=== PATIENT | male | born 1935 | race Caucasian/White ===

== ENCOUNTER 2018-05-21 16:20 | Inpatient (IN) | payer OTHER ==
[2018-05-21 17:54] LABS: Absolute Lymphocytes (CBC) 1.7 K/uL (0.7-4.9); Absolute Monocytes 0.7 K/uL (0.1-1.3); Absolute Neutrophil 4.2 K/uL (1.8-8.0); Basophils % 0.5 % (0-1.3); Eosinophils % 1.7 % (0-4.4); Hematocrit 30.2 % (39.6-49.0); Lymphocytes % 24.9 % (15.3-44.8); Monocytes % 10.8 % (3.3-12.3); RBC Red Blood Cell Count 3.31 M/uL (4.33-5.43)
[2018-05-21] MEDS ORDERED: BUMETANIDE 2.5 MG/10 ML VIAL IV ONE (18:00)
[2018-05-21 18:13] LABS: Albumin 2.8 g/dL (3.4-5.0); Bilirubin Direct 0.1 mg/dL (0-0.2); Bilirubin Total 0.2 mg/dL (0.2-1.0); Magnesium 1.9 mg/dL (1.8-2.4); Potassium 3.6 mmol/L (3.5-5.1); Troponin (Emerg Dept Use Only) 0.02 ng/mL (0.0-0.045)
--- NOTE | 2018-05-21 18:51 | RAD REPORT ---
EXAM DESCRIPTION: RAD - Chest Single View - 05/21/2018 6:34 pm CLINICAL HISTORY: DYSPNEA Chest pain. COMPARISON: No comparisons FINDINGS: Portable technique limits examination quality. Moderate bilateral pulmonary opacities are noted likely representing pulmonary edema. The heart is mi ldly enlarged in size. No displaced fractures. IMPRESSION: Moderate CHF versus volume overload pattern.
[2018-05-21 19:00] LABS: Anisocytosis 2+; Blood Morphology Comment NOTED (NOT SEEN); Platelet Estimate ADEQ; Urine White Blood Cell Casts OK
[2018-05-21 19:01] LABS: Hypochromasia 1+; Ovalocytes 1+; Polychromasia 1+
--- NOTE | 2018-05-21 19:55 | ER ---
Nurse's Notes [facility] Name: Jorge Crespo Age: 83 yrs Sex: Male : 1935 Arrival Date: 05/21/2018 Time: 16:24 Bed 19 Private MD: Diagnosis: acute chf exacerbation;CKD;pedal edema Presentation: 05/21 16:35 Presenting complaint: Patient states: c/o shortness of breath. Transition of care: rb1 patient was not received from another setting of care. 16:35 Method Of Arrival: Wheelchair rb1 16:35 Acuity: MELISSA 3 rb1 16:35 Onset of symptoms was May 20, 2018. Risk Assessment: Do you want to hurt yourself sv or someone else? Patient reports no desire to harm self or others. Initial Sepsis Screen: Does the patient meet any 2 criteria? No. Patient's initial sepsis screen is negative. Does the patient have a suspected source of infection? No. Patient's initial sepsis screen is negative. Note Pt has gained 4 lbs overnight, reported by spouse. Care prior to arrival: None. Triage Assessment: 16:35 General: Appears in no apparent distress. uncomfortable, obese, well developed, sv Behavior is calm, cooperative, appropriate for age. Pain: Denies pain. Neuro: Level of Consciousness is awake, alert, obeys commands, Oriented to person, place, time, situation, Gait is steady, Speech is normal. Cardiovascular: Patient's skin is warm and dry. Edema is 3+ to left midcalf, left ankle, left foot, right midcalf, right ankle and right foot pitting to left midcalf, left ankle, left foot, right midcalf, right ankle and right foot. Respiratory: Reports shortness of breath on exertion Airway is patent Respiratory effort is even, unlabored, Respiratory pattern is regular, tachypnea Onset: The symptoms/episode began/occurred yesterday, the patient has mild shortness of breath. Derm: Skin is normal. Historical: - Allergies: 16:35 No Known Allergies; rb1 - PMHx: 16:35 Diabetes - IDDM; CHF; A-fib; Myocardial infarction; Rheumatoid Arthritis; rb1 - PSHx: 16:35 bilateral knees; kidney; rb1 - Immunization history:: Adult Immunizations up to date. - Social history:: Smoking status: Patient/guardian denies using tobacco. - Ebola Screening: : Patient negative for fever greater than or equal to 101.5 degrees Fahrenheit, and additional compatible Ebola Virus Disease symptoms. Screenin:35 Abuse screen: Denies threats or abuse. Nutritional screening: No deficits noted. rb1 Tuberculosis screening: No symptoms or risk factors identified. 17:55 Fall Risk None identified. sv Assessment: 17:30 Cardiovascular: Rhythm is atrial fibrillation With PVC's. sv 17:55 Reassessment: Patient appears in no apparent distress at this time. Patient and/or sv family updated on plan of care and expected duration. Pain level reassessed. Patient is alert, oriented x 3, equal unlabored respirations, skin warm/dry/pink. 18:15 Reassessment: Patient appears in no apparent distress at this time. Patient and/or sv family updated on plan of care and expected duration. Pain level reassessed. Patient is alert, oriented x 3, equal unlabored respirations, skin warm/dry/pink. Patient states feeling better. Patient states symptoms have improved. 19:00 Reassessment: Patient appears in no apparent distress at this time. Patient and/or jb4 family updated on plan of care and expected duration. Pain level reassessed. A\T\O4. 19:00 Respiratory: Airway is patent Respiratory effort is even, labored, Respiratory pattern jb4 is regular, symmetrical, Breath sounds are clear. 20:00 Reassessment: Patient appears in no apparent distress at this time. Patient and/or jb4 family updated on plan of care and expected duration. Pain level reassessed. General:. Neuro: Oriented to person, place, time, situation. Respiratory: Airway is patent Respiratory effort is even, labored, Respiratory pattern is regular, symmetrical. 21:00 Reassessment: Patient appears in no apparent distress at this time. No changes from jb4 previously documented assessment. Patient and/or family updated on plan of care and expected duration. Pain level reassessed. attempted to call report, instructed to wait for call back. 21:33 Reassessment: Patient appears in no apparent distress at this time. No changes from jb4 previously documented assessment. Patient and/or family updated on plan of care and expected duration. Pain level reassessed. Report called to XIN Carmona. Vital Signs: 16:35 BP 139 / 79; Pulse 71; Resp 22; Temp 97.4(TE); Pulse Ox 99% on 3 lpm NC; Weight 116.12 rb1 kg (R); Height 5 ft. 7 in. (170.18 cm) (R); Pain 0/10; 17:29 BP 121 / 78; Pulse 96 MON; Resp 21; Pulse Ox 100% on 3.5 lpm NC; sv 19:05 BP 117 / 71; Pulse 96; Resp 18 S; Pulse Ox 100% on R/A; jd3 20:15 BP 117 / 56; Pulse 92; Resp 15; Pulse Ox 97% on 2 lpm NC; jb4 16:35 Body Mass Index 40.09 (116.12 kg, 170.18 cm) rb1 17:29 A fib with Occasional PVCs sv ED Course: 16:24 Patient arrived in ED. rg4 16:35 Patient has correct armband on for positive identification. Bed in low position. Call rb1 light in reach. Side rails up X 1. personal loan specialist on. Pulse ox on. NIBP on. 16:40 Sophie Mosher RN is Primary Nurse. sv 16:40 Arm band placed on Patient placed in an exam room, on a stretcher, on metalizing machine operator automatic, sv on pulse oximetry. 16:43 Lawson Alicia MD is Attending Physician. ps1 16:53 Triage completed. rb1 17:16 ED physician to see patient. sv 17:35 Door closed. Warm blanket given. Head of bed elevated. sv 17:35 Initial lab(s) drawn, by me, sent to lab. Inserted saline lock: 20 gauge in right sv antecubital area, using aseptic technique. Blood collected. Flushed right antecubital with 5 ml normal saline. 17:49 EKG done, by lens coating technician. reviewed by Lawson Alicia MD. sm3 18:34 XRAY CXR (1 view) In Process Unspecified. EDMS 19:10 Report given to David LAUREN. sv 19:24 Primary Nurse role handed off by Sophie Mosher RN sv 19:53 Jill Ngo MD is Hospitalizing Provider. ps1 21:26 Daren Scruggs RN is Primary Nurse. jb4 Administered Medications: 17:55 Drug: Bumex 1.25 mg Route: IVP; Site: right antecubital; sv 18:15 Follow up: Response: No adverse reaction sv Output: 17:40 Urine: 280ml (Voided); Total: 280ml. sv Outcome: 19:54 Decision to Hospitalize by Provider. ps1 22:14 Patient left the ED. fc Signatures: Dispatcher [employer] EDSophie Barrett RN RN sv Chretien, Felicia, RN RN Alanis Riley RN RN rb1 Ariella Kyle rg4 Daren Scruggs RN RN jb4 David Wallace RN RN jd3 Lawson Alicia MD MD ps1 Blanca Soria sm3 Corrections: (The following items were deleted from the chart) 19:19 17:29 BP 121 / 78; Pulse 96bpm; Monitor: A fib with Occasional PVCsResp 21bpm; Pulse Ox sv 100%; sv 20:59 19:00 Reassessment: Patient appears in no apparent distress at this time. Patient jb4 and/or family updated on plan of care and expected duration. Pain level reassessed. Patient is alert, oriented x 3, equal unlabored respirations, skin warm/dry/pink. jb4 20:59 20:00 Reassessment: Patient appears in no apparent distress at this time. Patient jb4 and/or family updated on plan of care and expected duration. Pain level reassessed. Patient is alert, oriented x 3, equal unlabored respirations, skin warm/dry/pink. jb4 21:43 21:00 Reassessment: Patient appears in no apparent distress at this time. No changes jb4 from previously documented assessment. Patient and/or family updated on plan of care and expected duration. Pain level reassessed. jb4
--- NOTE | 2018-05-21 19:56 | EDPHYS ---
Physician Documentation [facility] Name: Jorge Crespo Age: 83 yrs Sex: Male : 1935 Arrival Date: 05/21/2018 Time: 16:24 Bed 19 Private MD: ED Physician Lawson Alicia HPI: 05/21 19:37 This 83 yrs old Male presents to ER via Wheelchair with complaints of ps1 Breathing Difficulty. 19:37 Patient has an extensive medical history with prolonged admission at [facility] IDDM, PEA ps1 arrest in Mar, CKD, LVEF35% on bumex and now is fluid overloaded. Short of breath and increased weight gain over last week. Leg and abdomen swelling. Can speak in full sentences but labored. No fever. . Historical: - Allergies: 16:35 No Known Allergies; rb1 - PMHx: 16:35 Diabetes - IDDM; CHF; A-fib; Myocardial infarction; Rheumatoid Arthritis; rb1 - PSHx: 16:35 bilateral knees; kidney; rb1 - Immunization history:: Adult Immunizations up to date. - Social history:: Smoking status: Patient/guardian denies using tobacco. - Ebola Screening: : Patient negative for fever greater than or equal to 101.5 degrees Fahrenheit, and additional compatible Ebola Virus Disease symptoms. ROS: 19:37 Constitutional: Negative for fever, chills, and weight loss, Eyes: Negative for injury, ps1 pain, redness, and discharge, Cardiovascular: Negative for chest pain, palpitations, and edema, Abdomen/GI: Negative for abdominal pain, nausea, vomiting, diarrhea, and constipation, Back: Negative for injury and pain, Skin: Negative for injury, rash, and discoloration, Neuro: Negative for headache, weakness, numbness, tingling, and seizure. 19:37 Respiratory: Positive for dyspnea on exertion, shortness of breath, on exertion. 19:37 MS/extremity: Positive for swelling, of the right leg and left leg. Exam: 19:37 Constitutional: This is a well developed, well nourished patient who is awake, alert, ps1 and in no acute distress. Head/Face: Normocephalic, atraumatic. Eyes: Pupils equal round and reactive to light, extra-ocular motions intact. Lids and lashes normal. Conjunctiva and sclera are non-icteric and not injected. Chest/axilla: Normal chest wall appearance and motion. Nontender with no deformity. No lesions are appreciated. Cardiovascular: Regular rate and rhythm. No gallops, murmurs, or rubs. Normal PMI, no JVD. No pulse deficits. Abdomen/GI: Soft, non-tender, with normal bowel sounds. No distension or tympany. No guarding or rebound. No evidence of tenderness throughout. Back: No spinal tenderness. No costovertebral tenderness. Full range of motion. Skin: Warm, dry with normal turgor. Normal color with no rashes, no lesions, and no evidence of cellulitis. Neuro: Awake and alert, GCS 15, oriented to person, place, time, and situation. Cranial nerves II-XII grossly intact. Sensory grossly intact. 19:37 Respiratory: the patient does not display signs of respiratory distress, Respirations: labored breathing, that is mild, Breath sounds: rhonchi. 19:37 Musculoskeletal/extremity: Extremities: bilateral lower extremity edema extending proximally towards the abdomen. Vital Signs: 16:35 BP 139 / 79; Pulse 71; Resp 22; Temp 97.4(TE); Pulse Ox 99% on 3 lpm NC; Weight 116.12 rb1 kg (R); Height 5 ft. 7 in. (170.18 cm) (R); Pain 0/10; 17:29 BP 121 / 78; Pulse 96 MON; Resp 21; Pulse Ox 100% on 3.5 lpm NC; sv 19:05 BP 117 / 71; Pulse 96; Resp 18 S; Pulse Ox 100% on R/A; jd3 20:15 BP 117 / 56; Pulse 92; Resp 15; Pulse Ox 97% on 2 lpm NC; jb4 16:35 Body Mass Index 40.09 (116.12 kg, 170.18 cm) rb1 17:29 A fib with Occasional PVCs sv MDM: 17:12 Patient medically screened. ps1 19:37 Data reviewed: vital signs, nurses notes, lab test result(s), EKG, radiologic studies, ps1 and as a result, I will admit patient. Counseling: I had a detailed discussion with the patient and/or guardian regarding: the historical points, exam findings, and any diagnostic results supporting the discharge/admit diagnosis, lab results, radiology results, the need for further work-up and treatment in the hospital. 02/05 17:35 Order name: BMP; Complete Time: 19:13 ps1 05/21 17:35 Order name: CBC with Diff; Complete Time: 19:13 ps1 05/21 17:35 Order name: Hepatic Function; Complete Time: 19:13 ps1 05/21 17:35 Order name: Lipase; Complete Time: 19:13 ps1 05/21 17:35 Order name: Magnesium; Complete Time: 19:13 ps1 05/21 17:35 Order name: NT PRO-BNP; Complete Time: 19:13 ps1 05/21 17:26 Order name: EKG; Complete Time: 17:26 sv 05/21 17:26 Order name: EKG - Nurse/Tech; Complete Time: 17:28 sv 05/21 17:35 Order name: XRAY CXR (1 view); Complete Time: 19:13 ps1 05/21 17:35 Order name: Troponin (emerg Dept Use Only); Complete Time: 19:13 ps1 05/21 17:35 Order name: Cardiac monitoring; Complete Time: 17:42 ps1 05/21 17:35 Order name: IV Saline Lock; Complete Time: 17:42 ps1 05/21 19:01 Order name: CBC Smear Scan; Complete Time: 19:13 EDMS 05/21 17:35 Order name: Labs collected and sent; Complete Time: 17:42 ps1 05/21 17:35 Order name: O2 Per Protocol; Complete Time: 17:42 ps1 05/21 17:35 Order name: O2 Sat Monitoring; Complete Time: 17:42 ps1 Administered Medications: 17:55 Drug: Bumex 1.25 mg Route: IVP; Site: right antecubital; sv 18:15 Follow up: Response: No adverse reaction sv Disposition: 05/21/18 19:54 Hospitalization ordered by Jill Ngo for Inpatient Admission. Preliminary diagnosis are acute chf exacerbation, CKD, pedal edema. - Bed requested for Telemetry/MedSurg (Inpatient). - Status is Inpatient Admission. fc - Condition is Fair. - Problem is an acute exacerbation. - Symptoms are unchanged. UTI on Admission? No Signatures: Dispatcher [employer] Sophie Grijalva RN RN sv Webb, Martha, RN RN Lulú Zhao RN RN Alanis Riley RN RN rb1 Lawson Alicia MD MD ps1 Corrections: (The following items were deleted from the chart) 20:25 19:54 Hospitalization Ordered by Jill Ngo MD for Inpatient Admission. Preliminary mw diagnosis is acute chf exacerbation; CKD; pedal edema. Bed requested for Telemetry/MedSurg (Inpatient). Status is Inpatient Admission. Condition is Fair. Problem is an acute exacerbation. Symptoms are unchanged. UTI on Admission? No. ps1 22:14 20:25 05/21/2018 19:54 Hospitalization Ordered by Jill Ngo MD for Inpatient fc Admission. Preliminary diagnosis is acute chf exacerbation; CKD; pedal edema. Bed requested for Telemetry/MedSurg (Inpatient). Status is Inpatient Admission. Condition is Fair. Problem is an acute exacerbation. Symptoms are unchanged. UTI on Admission? No. mw
[2018-05-21] MEDS ORDERED: ONDANSETRON 4 MG/2 ML VIAL IV PRN (22:50)
[2018-05-21] MEDS ORDERED: ACETAMINOPHEN 500 MG TAB PO PRN (22:50)
--- NOTE | 2018-05-21 23:48 | P.HP ---
Certification for Inpatient Patient admitted to: Inpatient With expected LOS: >2 Midnights Practitioner: I am a practitioner with admitting privileges, knowledge of patient current condition, hospital course, and medical plan of care. Services: Services provided to patient in accordance with Admission requirements found in Title 42 Section 412.3 of the Code of Federal Regulations Patient History Date of Service: 05/21/18 Reason for admission: acute on chronic systolic CHF History of Present Illness: Mr Crespo is an 83 years old male with history of DM II, COPD with home oxygen at 3.5L by [place], HTN, Chronic A.Fib anticoagulated with apixiban, chronic systolic CHF, last ECHO shows EF 35%, admitted to [facility] about 1 month ago due to pulmonary edema, complicated with respiratory failure, requiring mechanical ventilation. The patient came to ED at this time complaining of progressive increasing in LE edema, also abdominal girth increased. He complain of SOB with minimal activity, improving with rest. His cloth tester has increased Bumex dose recently due to his symptoms, but did not work. No fever or chills reported. Lab work remarkable for abnormal renal function, elevated proBNP. CXR consistent with pulmonary edema. Allergies No Known Allergies Allergy (Unverified 05/21/18 20:33) Home medications list reviewed: Yes Home Medications: Allopurinol 300 mg PO DAILY 05/21/18 Apixaban [Eliquis *] 2.5 mg PO BID 05/21/18 Brimonidine Tartrate [Alphagan P] 1 drop OP BEDTIME 05/21/18 Bumetanide [Bumex] 2 mg PO BID 05/21/18 Dorzolamide HCl/Pf [Dorzolamide 2% Eye Drop] 1 drop OP DAILY 05/21/18 Ferrous Sulfate 325 mg PO TIDWM 05/21/18 Gabapentin 900 mg PO BID 05/21/18 Insulin Detemir [Levemir] 16 unit SQ BID 05/21/18 Metoprolol Tartrate 50 mg PO BID 05/21/18 Simvastatin 20 mg PO DAILY 05/21/18 Tamsulosin HCl 0.4 mg PO DAILY 05/21/18 predniSONE [Prednisone*] 5 mg PO DAILY 05/21/18 traMADol HCL [Ultram*] 50 mg PO BIDP PRN 05/21/18 - Past Medical/Surgical History Has patient received pneumonia vaccine in the past: Yes Diabetic: Yes -: IDDM -: CHF -: Afib -: [place] -: Rheumatoid Arthritis -: Chronic Kidney Disease -: Knees bilaterally -: kidney - Family History Sister -: Hypertension, Diabetes, Cancer - Social History Smoking Status: Never smoker Alcohol use: No CD- Drugs: No Caffeine use: Yes Place of Residence: Home Review of Systems 10-point ROS is otherwise unremarkable Physical Examination - Vital Signs Temperature: 98.2 F Blood Pressure: 130/76 Pulse: 90 Respirations: 16 Pulse Ox (%): 98 - Physical Exam General: Alert, In no apparent distress HEENT: Atraumatic, PERRLA, Mucous membr. moist/pink, EOMI, Sclerae nonicteric Neck: Supple, 2+ carotid pulse no bruit, No LAD, Without JVD or thyroid abnormality Respiratory: Diminished, Crackles/rales (bibasilar rales) Cardiovascular: Normal S1 S2, Irregular heart rate/rhythm Gastrointestinal: Normal bowel sounds, No tenderness Musculoskeletal: No tenderness, Swelling (LE edema 2+) Integumentary: No rashes Neurological: Normal speech, Normal strength at 5/5 x4 extr, Normal tone, Normal affect Lymphatics: No axilla or inguinal lymphadenopathy - Studies Laboratory Data (last 24 hrs) 05/21/18 17:40: WBC 6.7, Hgb 9.2 L, Hct 30.2 L, Plt Count 183 05/21/18 17:40: Sodium 141, Potassium 3.6, BUN 65 H, Creatinine 2.46 H, Glucose 334 H, Magnesium 1.9, Total Bilirubin 0.2, AST 53 H, ALT 103 H, Alkaline Phosphatase 203 H, Lipase 496 H Assessment and Plan - Problems (Diagnosis) (1) Acute on chronic systolic CHF (congestive heart failure) Current Visit: Yes Status: Acute (2) Diabetes mellitus Current Visit: Yes Status: Acute Qualifiers: Diabetes mellitus type: type 2 Diabetes mellitus machine long goods helper insulin use: with machine long goods helper use Diabetes mellitus complication status: with unspecified complications Qualified Code(s): E11.8 - Type 2 diabetes mellitus with unspecified complications; Z79.4 - alf (current) use of insulin (3) COPD (chronic obstructive pulmonary disease) Current Visit: Yes Status: Acute Qualifiers: COPD type: unspecified COPD Qualified Code(s): J44.9 - Chronic obstructive pulmonary disease, unspecified (4) HTN (hypertension) Current Visit: Yes Status: Acute Qualifiers: Hypertension type: essential hypertension Qualified Code(s): I10 - Essential (primary) hypertension (5) CAD (coronary artery disease) Current Visit: Yes Status: Acute Qualifiers: Coronary Disease-Associated Artery/Lesion type: [place] artery [place] vs. transplanted heart: [place] heart Associated angina: without angina Qualified Code(s): I25.10 - Atherosclerotic heart disease of [place] coronary artery without angina pectoris - Plan Will admit the patient due to acute on chronic CHF exacerbation. Will order IV lasix, he has recent cardiac work up done in [facility]. Will order cardiology consult. - Advance Directives Does patient have a Living Will: Yes Does patient have a Durable POA for Healthcare: Yes - Code Status/Comfort Care Code Status Assessed: Yes Code Status: Full Code
[2018-05-22] MEDS: FUROSEMIDE 40 MG/4 ML VIAL IV SCH ×4 (00:13→23:48)
[2018-05-22] MEDS: INSULIN -REGULAR HUMAN 50 UNIT/0.5 ML ML SQ SCH ×5 (00:14→20:42)
[2018-05-22 05:09] LABS: Urine Appearance CLEAR; Urine Bilirubin NEGATIVE (NEG); Urine Blood NEGATIVE (NEG); Urine Color YELLOW; Urine Glucose NEGATIVE (NEG); Urine Protein 1+ (NEG); Urine Urobilinogen 0.2 mg/dL (0.2-1.0)
[2018-05-22 05:30] LABS: Urine Microscopic Reflex ORDER UMIC
[2018-05-22 05:42] LABS: Urine Bacteria <20 /HPF (NONE SEEN); Urine Culture Reflex Order NOT NEEDED; Urine RBC <5 /HPF (NONE SEEN)
[2018-05-22 06:54] LABS: Absolute Lymphocytes (CBC) 1.8 K/uL (0.7-4.9); Absolute Monocytes 0.9 K/uL (0.1-1.3); Absolute Neutrophil 5.6 K/uL (1.8-8.0); Basophils % 0.4 % (0-1.3); Eosinophils % 3.3 % (0-4.4); Hematocrit 30.6 % (39.6-49.0); Lymphocytes % 20.6 % (15.3-44.8); MPV 8.9 fL (7.6-11.3); Monocytes % 10.1 % (3.3-12.3)
--- NOTE | 2018-05-22 06:59 | EKG ---
Test Date: 2018-04-20 Test Time: 17:32:01 Inter Com Servicer: TAMMY MEASUREMENT RESULTS: Intervals: Rate: 105 [place]: QRSD: 88 QT: 360 QTc: 475 [place]: P: [place]: QRS: 47 T: 111 INTERPRETIVE STATEMENTS: Atrial fibrillation with rapid ventricular response Low voltage QRS Nonspecific ST and T wave abnormality, probably digitalis effect Abnormal ECG Compared to ECG 09/25/2005 08:43:27 Low QRS voltage now present ST (T wave) deviation now present Sinus rhythm no longer present Electronically Signed On 05-22-18 06:52:04 CASING BUILDER by Laith Roldan
[2018-05-22 07:14] LABS: Potassium 3.6 mmol/L (3.5-5.1)
[2018-05-22] MEDS ORDERED: POTASSIUM 25 MEQ EFFERV TAB PO ONE (07:20)
[2018-05-22] MEDS: HYDRALAZINE HCL 25 MG TABLET PO SCH ×3 (08:21→20:41)
[2018-05-22] MEDS: APIXABAN 2.5 MG TABLET PO SCH ×2 (08:21→20:41)
[2018-05-22] MEDS ORDERED: ENOXAPARIN 30 MG/0.3 ML SQ SCH (09:00)
--- NOTE | 2018-05-22 10:57 | ECHO ---
HEIGHT: 5 ft 7 in WEIGHT: 256 lb 1.6 oz DATE OF STUDY: 05/22/[address]: Laith Roldan MD 2-DIMENSIONAL: YES M.MODE: YES DOPPLER: YES COLOR FLOW: YES TDS: NO PORTABLE: NO DEFINITY: NO BUBBLE STUDY: NO DIAGNOSIS: CONGESTIVE HEART FAILURE CARDIAC HISTORY: CATHERIZATION: SURGERY: PROSTHETIC VALVE: PACEMAKER: MEASUREMENTS (cm) DIASTOLIC (NORMALS) SYSTOLIC (NORMALS) IVSd 1.4 (0.6-1.2) LA Diam 4.3 (1.9-4.0) LVEF 69% LVIDd 4.3 (3.5-5.7) LVIDs 2.7 (2.0-3.5) %FS 39% LVPWd 1.5 (0.6-1.2) Ao Diam 2.5 (2.0-3.7) 2 DIMENSIONAL ASSESSMENT: RIGHT ATRIUM: DILATED LEFT ATRIUM: DILATED RIGHT VENTRICLE: DILATED LEFT VENTRICLE: NORMAL TRICUSPID VALVE: NORMAL MITRAL VALVE: NORMAL PULMONIC VALVE: NORMAL AORTIC VALVE: SCLEROSIS PERICARDIAL EFFUSION: NONE AORTIC ROOT: NORMAL LEFT VENTRICULAR WALL MOTION: NORMAL. DOPPLER/COLOR FLOW: NO AORTIC STENOSIS OR AORTIC REGURGITATION. MILD MITRAL REGURGITATION. MODERATE TRICUSPID REGURGITATION. SEVERE PULMONARY HYPERTENSION. ESTIMATED RIGHT VENTRICULAR SYSTOLIC PRESSURE 66mmHg. COMMENTS: NORMAL LEFT VENTRICULAR EJECTION FRACTION. AORTIC SCLEROSIS WITH NO AORTIC STENOSIS/ AORTIC REGURGITATION. DILATED LEFT ATRIUM, RIGHT ATRIUM AND RIGHT VENTRICLE. MILD MITRAL REGURGITATION. MODERATE TRICUSPID REGURGITATION. SEVERE PULMONARY HYPERTENSION. TECHNOLOGIST: LEONARDO DACOSTA
--- NOTE | 2018-05-22 12:20 | CON ---
Chief Complaint: Shortness of breath, swelling. Reason For Consult: Atrial fib and congestive heart failure. History Of Present Illness: Mr. Crespo was in [facility]. He gives us a history that he was in the hospit al for many weeks, underwent a cardiac cath, had a balloon pump therapy. No interventions were done after his cardiac cath. He does not have a defibrillator. He was placed on some medications, totall y had congestive heart failure. It sounds like he may have actually left the hospital AMA. Presentl y, he takes prednisone, Flomax, metoprolol, brimonidine, insulin, gabapentin, iron sulfate, dorzolami de, bumetanide, simvastatin, Eliquis 2.5 b.i.d., allopurinol, and tramadol. He has no known allergie s. He did not seem to be familiar with any of the medicines or think that he had been in atrial fibr illation before, but his medication list indicate that probably he has been in atrial fibrillation co nstantly, need to get records from [facility]. The patient is a poor historian. He has a history of diabe johnny, hypertension, prostate disease, COPD, glaucoma, and more recently congestive heart failure and a trial fibrillation. Also a history of gout. Physical Examination: General: He is 5 feet 7 inches, 256 pounds, obese, alert, oriented, pleasant, not in distress. Lungs: No crackles or wheezes. Breath sounds are decreased in both bases. I do not appreciate ____ Heart: Irregularly irregular going about 100 beats per minute. Abdomen: Soft. There is edema of the abdominal wall and thighs, presacral and shins and feet. His electrocardiogram shows atrial fibrillation, heart rate 105, nonspecific ST and T-wave abnormalit y. He was in sinus rhythm in 2005, but we do not know when the atrial fibrillation started following 2005. We suspect it was before February 2018 based on the history he gives us. 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 Thank you very much for the kind referral of Mr. Crespo. I will follow him with you. OSIRIS Voice ID: [id number] Report ID: [id number]
[2018-05-22] MEDS ORDERED: GLUCAGON 1 MG/VIAL IM PRN (14:32)
[2018-05-22] MEDS ORDERED: D50W 25 GM/50 ML SYRINGE IV PRN (14:32)
[2018-05-22] MEDS: FERROUS SULFATE 325 MG TAB PO SCH (16:31)
--- NOTE | 2018-05-22 17:53 | PN ---
Date of Progress Note: 05/22/2018 Subjective: The patient seen and examined. Chart reviewed and case discussed with RN. The patient states that he is still having some difficulty breathing, unable to sleep. He is on oxygen at home a s well. Medications: List reviewed. Code Status: Full code. Physical Examination: Vital Signs: Temperature 97.8, heart rate 97, blood pressure 118/63, respirations 18, O2 96% on 2 L via nasal cannula. General: Awake, alert, oriented x3. Elderly male, ill appearing, morbidly obese. CV: S1, S2. Irregularly irregular. Peripheral pulses are weak bilaterally. Respiratory: Diminished breath sounds. Crackles heard. No wheezing. No use of accessory muscles. Gastrointestinal: Abdomen is soft, distended. No tenderness. Bowel sounds positive. Extremities: No clubbing or cyanosis. The patient has 3+ edema bilateral lower extremities. NEURO: Cranial nerves 2 through 12 intact grossly. No focal neurological deficit. Speech is normal . Skin: No rashes. Normal skin turgor. Laboratory Data: Sodium 143, potassium 3.6, chloride 105, CO2 34, BUN 65, creatinine 2.36, glucose 1 24, calcium 8.2. WBC 8.6, H and H 9.5, 30.6, platelets 230, neutrophils 65%. Echocardiogram pending . Assessment And Plan: An 83-year-old male with: 1.Acute on chronic systolic congestive heart failure. We will continue with congestive heart failur e guidelines. Appreciate Dr. Roldan' input. Recommend starting Entresto. The patient is on beta-bl ocker. We will hold LAURA inhibitor as the patient will need Entresto. We will check echocardiogram. Monitor I's and O's. 1500 mL fluid restriction. Daily weights. 2.Diabetes mellitus type 2 with long-term use of insulin with hyperglycemia. We will resume home do se of long-acting insulin. Continue sliding scale. Continue Accu-Cheks. 3.Chronic obstructive pulmonary disease, chronic bronchitis. Continue albuterol p.r.n. 4.Chronic respiratory failure due to chronic obstructive pulmonary disease and likely congestive hea rt failure. The patient is on 2 L at this time. 5.Morbid obesity. BMI of 40. 6.Essential hypertension, stable. Resume home medications. 7.Gout. We will hold allopurinol due to elevated creatinine. 8.Acute versus acute on chronic kidney injury. Monitor creatinine. Consult Nephrology. 9.Coronary artery disease, caddo artery and caddo heart without angina, stable. 10.Noncompliance. 11.Atrial fibrillation on Eliquis, controlled ventricular rate, chronic. 12.Rheumatoid arthritis. 13.Acute on chronic kidney disease. Unknown baseline. We will need to obtain records. 14.Gastrointestinal and deep venous thrombosis prophylaxis addressed. The patient is already on api xaban renally dosed. Likely discharge in the next 48 to 72 hours pending on clinical response. /MODL Voice ID: [id number] Report ID: [id number]
[2018-05-22] MEDS: METOPROLOL TAR 25 MG TAB PO SCH (17:58)
--- NOTE | 2018-05-22 19:11 | P.CNS ---
Date of Consult: 05/22/18 Reason for Consult: STEVIE Requesting Physician: Adrianna Le Primary Care Provider: Dr. Joseph Chief Complaint: acute on chronic systolic CHF History of Present Illness: Mr Crespo is an 83 years old male with history of DM II, COPD with home oxygen at 3.5L by CT, HTN, Chronic A.Fib anticoagulated with apixiban, chronic systolic CHF, last ECHO shows EF 35%, admitted to [facility] about 1 month ago due to pulmonary edema, complicated with respiratory failure, requiring mechanical ventilation. The patient came to ED at this time complaining of progressive increasing in LE edema, also abdominal girth increased. He complain of SOB with minimal activity, improving with rest. His extension educator has increased Bumex dose recently due to his symptoms, but did not work. No fever or chills reported. Lab work remarkable for abnormal renal function, elevated proBNP. CXR consistent with pulmonary edema. 19:37 This 83 yrs old Male presents to ER via Wheelchair with complaints of ps1 Breathing Difficulty. 19:37 Patient has an extensive medical history with prolonged admission at [facility] IDDM, PEA ps1 arrest in Mar, CKD, LVEF35% on bumex and now is fluid overloaded. Short of breath and increased weight gain over last week. Leg and abdomen swelling. Can speak in full sentences but labored. No fever. Allergies No Known Allergies Allergy (Unverified 05/21/18 20:33) Home medications list reviewed: Yes Home Medications: Allopurinol 300 mg PO DAILY 05/21/18 Apixaban [Eliquis *] 2.5 mg PO BID 05/21/18 Brimonidine Tartrate [Alphagan P] 1 drop OP BEDTIME 05/21/18 Bumetanide [Bumex] 2 mg PO BID 05/21/18 Dorzolamide HCl/Pf [Dorzolamide 2% Eye Drop] 1 drop OP DAILY 05/21/18 Ferrous Sulfate 325 mg PO TIDWM 05/21/18 Gabapentin 900 mg PO BID 05/21/18 Insulin Detemir [Levemir] 16 unit SQ BID 05/21/18 Metoprolol Tartrate 50 mg PO BID 05/21/18 Simvastatin 20 mg PO DAILY 05/21/18 Tamsulosin HCl 0.4 mg PO DAILY 05/21/18 predniSONE [Prednisone*] 5 mg PO DAILY 05/21/18 traMADol HCL [Ultram*] 50 mg PO BIDP PRN 05/21/18 - Past Medical/Surgical History Diabetic: Yes -: IDDM -: CHF -: Afib -: OK -: Rheumatoid Arthritis -: Chronic Kidney Disease -: Knees bilaterally -: kidney - Family History Sister Medical History: Hypertension, Diabetes, Cancer - Social History Alcohol use: No CD- Drugs: No Caffeine use: Yes Place of Residence: Home Review of Systems 10-point ROS is otherwise unremarkable General: Weakness, Malaise Respiratory: SOB with Excertion Cardiovascular: Edema Neurological: Weakness Physical Examination Temp Pulse Resp BP Pulse Ox 98.3 F 92 H 18 121/80 95 05/22/18 16:00 05/22/18 17:58 05/22/18 16:00 05/22/18 17:58 05/22/18 16:00 General: Oriented x3, Cooperative HEENT: Normocephalic Neck: Supple, JVD distended Respiratory: Diminished Cardiovascular: Regular rate/rhythm, Edema Gastrointestinal: Soft and benign, Non-distended Musculoskeletal: No clubbing, No contractures Integumentary: No rashes Neurological: Normal speech Blood work reviewed in the chart. Initial serum creatinine 2.46 Imagings Data: EXAM DESCRIPTION: RAD - Chest Single View - 05/21/2018 6:34 pm CLINICAL HISTORY: DYSPNEA Chest pain. COMPARISON: No comparisons FINDINGS: Portable technique limits examination quality. Moderate bilateral pulmonary opacities are noted likely representing pulmonary edema. The heart is mildly enlarged in size. No displaced fractures. IMPRESSION: Moderate CHF versus volume overload pattern. DIASTOLIC (NORMALS) SYSTOLIC (NORMALS) IVSd 1.4 (0.6-1.2) LA Diam 4.3 (1.9-4.0) LVEF 69% LVIDd 4.3 (3.5-5.7) LVIDs 2.7 (2.0-3.5) %FS 39% LVPWd 1.5 (0.6-1.2) Ao Diam 2.5 (2.0-3.7) 2 DIMENSIONAL ASSESSMENT: RIGHT ATRIUM: DILATED LEFT ATRIUM: DILATED RIGHT VENTRICLE: DILATED LEFT VENTRICLE: NORMAL TRICUSPID VALVE: NORMAL MITRAL VALVE: NORMAL PULMONIC VALVE: NORMAL AORTIC VALVE: SCLEROSIS PERICARDIAL EFFUSION: NONE AORTIC ROOT: NORMAL LEFT VENTRICULAR WALL MOTION: NORMAL. DOPPLER/COLOR FLOW: NO AORTIC STENOSIS OR AORTIC REGURGITATION. MILD MITRAL REGURGITATION. MODERATE TRICUSPID REGURGITATION. SEVERE PULMONARY HYPERTENSION. ESTIMATED RIGHT VENTRICULAR SYSTOLIC PRESSURE 66mmHg. COMMENTS: NORMAL LEFT VENTRICULAR EJECTION FRACTION. AORTIC SCLEROSIS WITH NO AORTIC STENOSIS/ AORTIC REGURGITATION. DILATED LEFT ATRIUM, RIGHT ATRIUM AND RIGHT VENTRICLE. MILD MITRAL REGURGITATION. MODERATE TRICUSPID REGURGITATION. SEVERE PULMONARY HYPERTENSION. Conclusions/Impression: A/ STEVIE likely CRS. CKD IV with proteinuria. A/C Diastolic CHF. Pulmonary HTN. DM II with CKD. HTN with CKD. Anemia in chronic illness. BPH with LUTS. Moderate protein malnutrition. Hypocalcemia. P/ Continue current POC and Medications. Increase Lasix 40mg q6h. Start Spironolactone 25mg BID. Start Vitamin D. No NSAIDs. AM labs. Daily weight. Thank you kindly for the consultation.
[2018-05-22] MEDS: ATORVASTATIN 10 MG TAB PO SCH (20:41)
[2018-05-22] MEDS: INSULIN GLARGINE 100 UNITS/ML SQ SCH (20:42)
[2018-05-22] MEDS: TRAMADOL HCL 50 MG TAB PO PRN (20:53)
[2018-05-22] MEDS ORDERED: BRIMONIDINE TARTRATE 0.15% 5 ML EACH EYE SCH (21:00)
[2018-05-22] MEDS ORDERED: GABAPENTIN 300 MG CAP PO SCH (21:00)
[2018-05-22] MEDS: SPIRONOLACTONE 25 MG TABLET PO SCH (23:47)
[2018-05-23 04:52] LABS: Absolute Lymphocytes (CBC) 2.2 K/uL (0.7-4.9); Absolute Monocytes 1.1 K/uL (0.1-1.3); Absolute Neutrophil 5.5 K/uL (1.8-8.0); Basophils % 0.6 % (0-1.3); Eosinophils % 1.6 % (0-4.4); Hematocrit 29.6 % (39.6-49.0); Lymphocytes % 24.7 % (15.3-44.8); MPV 9.1 fL (7.6-11.3); Monocytes % 11.7 % (3.3-12.3); RBC Red Blood Cell Count 3.31 M/uL (4.33-5.43)
[2018-05-23 05:01] LABS: Phosphorus 4.5 mg/dL (2.5-4.9); Potassium 3.8 mmol/L (3.5-5.1)
[2018-05-23] MEDS: METOPROLOL TAR 25 MG TAB PO SCH ×2 (05:21→17:41)
[2018-05-23] MEDS: FUROSEMIDE 40 MG/4 ML VIAL IV SCH ×4 (05:21→21:29)
[2018-05-23] MEDS ORDERED: POTASSIUM 25 MEQ EFFERV TAB PO ONE (07:24)
[2018-05-23] MEDS: INSULIN -REGULAR HUMAN 50 UNIT/0.5 ML ML SQ SCH ×4 (07:30→21:28)
[2018-05-23] MEDS ORDERED: DORZOLAMIDE HCL OP SCH (09:00)
[2018-05-23] MEDS ORDERED: ALLOPURINOL 300 MG TAB PO SCH (09:00)
[2018-05-23] MEDS: TAMSULOSIN 0.4 MG SR CAP PO SCH (09:21)
[2018-05-23] MEDS: predniSONE 5 MG TAB PO SCH (09:21)
[2018-05-23] MEDS: FERROUS SULFATE 325 MG TAB PO SCH ×3 (09:21→16:26)
[2018-05-23] MEDS: APIXABAN 2.5 MG TABLET PO SCH ×2 (09:22→21:30)
[2018-05-23] MEDS: HYDRALAZINE HCL 25 MG TABLET PO SCH ×3 (09:22→21:30)
[2018-05-23] MEDS: SPIRONOLACTONE 25 MG TABLET PO SCH ×2 (09:22→21:29)
[2018-05-23] MEDS: INSULIN GLARGINE 100 UNITS/ML SQ SCH ×2 (09:22→21:28)
--- NOTE | 2018-05-23 13:04 | PN ---
Mr. Crespo has not had much of a diuresis. We have found out that his ejection fraction is normal. He has severe pulmonary hypertension, which is a major problem. It probably warrants a consultation with Dr. Brenner, who could recommend any specific therapy to help with that. The PA pressure estim ated at 66. Ejection fraction normal. So, I think he has mostly right-sided heart failure. He need s a lot more diuresis. He may need chronic oxygen therapy at home. He is on Eliquis, so I do not th ink we want to do any specific tests for pulmonary embolic disease, and I think we ought to try to lo ok into treating pulmonary hypertension with this specific agent. He needs a lot more diuresis. RADHA/HAY Voice ID: [id number] Report ID: [id number]
--- NOTE | 2018-05-23 18:40 | PN ---
Date of Progress Note: 05/23/2018 Subjective: The patient is seen and examined. Chart reviewed and case discussed with RN. at t he bedside. Treatment plan explained. All questions answered. The patient states he feels better, still having some shortness of breath and lower extremity edema. Medications: List reviewed. Physical Examination: Vital Signs: Temperature 97.3, heart rate 88, blood pressure 120/73, respirations 20, and O2 of 98% on 2 L via nasal cannula. General: Awake, alert, and oriented x3, elderly male, obese, BMI of 39. CV: S1 and S2. Irregular rate and irregular rhythm. Peripheral pulses present. No murmurs. Respiratory: Diminished breath sounds. Some minimal wheezing heard. Gastrointestinal: Abdomen is soft, nontender, and nondistended. Positive bowel sounds. Extremities: No clubbing or cyanosis. The patient has 2+ edema bilateral lower extremities. Neurologic: Nonfocal. Laboratory Data: Sodium 141, potassium 3.8, chloride 101, CO2 of 33, BUN 68, creatinine 2.37, glucos e 209, calcium 8.3, phosphorus 4.5, and magnesium 2. WBC 9, H and H of 9.3 and 29.6, platelets 201. Assessment And Plan: An 83-year-old male with, 1.Sxxfc-cm-rxmqsot diastolic heart failure. Echo shows ejection fraction of 69%. Also shows severe pulmonary hypertension. We will continue diuretics. Lasix has been adjusted. I appreciate Dr. Ronnie riddle' input. 2.Ewosl-iu-czfbyrx kidney disease, stage 3. We will continue with monitoring creatinine. I appreci ate nephrology input. 3.Diabetes mellitus type 2 with long-term use of insulin with hyperglycemia. We will continue slidi ng scale insulin and Accu-Cheks. 4.Chronic obstructive pulmonary disease and chronic bronchitis. Continue nebulizer treatments and s upplemental oxygenation. 5.Chronic respiratory failure due to chronic obstructive pulmonary disease and congestive heart fail ure. The patient is on home oxygen. 6.Severe pulmonary hypertension. We will obtain pulmonary consultation. 7.Morbid obesity, BMI of 40. 8.Essential hypertension, stable. 9.Gout. Allopurinol on hold due to elevated creatinine. 10.Coronary artery disease, zuni artery and zuni heart without angina, stable. 11.Noncompliance. 12.Atrial fibrillation, on Eliquis, controlled ventricular rate, chronic. 13.Rheumatoid arthritis. 14.Gastrointestinal and deep venous thrombosis prophylaxis addressed. The patient is on apixaban, r enally dosed. PLAN: We will continue to monitor. Continue diuretics. Lasix dose has been adjusted. Monitor I's and O's. Pulmonology consultation. TODD Voice ID: [id number] Report ID: [id number]
[2018-05-23] MEDS: ATORVASTATIN 10 MG TAB PO SCH (21:30)
[2018-05-23 22:22] VITALS: O2SAT 97
[2018-05-24] MEDS: FUROSEMIDE 40 MG/4 ML VIAL IV SCH ×2 (03:57→10:00)
[2018-05-24] MEDS: METOPROLOL TAR 25 MG TAB PO SCH (05:19)
[2018-05-24 05:47] VITALS: BMI 38.9
[2018-05-24 06:52] LABS: Potassium 3.5 mmol/L (3.5-5.1)
[2018-05-24] MEDS: INSULIN -REGULAR HUMAN 50 UNIT/0.5 ML ML SQ SCH (07:30)
[2018-05-24] MEDS: INSULIN GLARGINE 100 UNITS/ML SQ SCH (09:00)
[2018-05-24] MEDS ORDERED: POTASSIUM CL SA 10 MEQ TAB PO ONE (09:00)
[2018-05-24] MEDS: SPIRONOLACTONE 25 MG TABLET PO SCH (09:45)
[2018-05-24] MEDS: predniSONE 5 MG TAB PO SCH (09:46)
[2018-05-24] MEDS: APIXABAN 2.5 MG TABLET PO SCH (09:46)
[2018-05-24] MEDS: FERROUS SULFATE 325 MG TAB PO SCH ×2 (09:46→12:00)
[2018-05-24] MEDS: TAMSULOSIN 0.4 MG SR CAP PO SCH (09:47)
[2018-05-24] MEDS: HYDRALAZINE HCL 25 MG TABLET PO SCH (09:47)
[2018-05-24] MEDS: TRAMADOL HCL 50 MG TAB PO PRN (09:47)
--- NOTE | 2018-05-24 12:29 | PN ---
Mr. Crespo is well enough to be discharged home. He has had diuresis, chronic AFib, anticoagulated. SH/MODL Voice ID: [id number] Report ID: [id number]
[2018-05-24 12:58] VITALS: BP 119/69; TEMP 98
--- NOTE | 2018-05-24 23:22 | P.PN ---
Date of Service: 05/24/18 Vital Signs Temp Pulse Resp BP Pulse Ox 98.0 F 96 H 20 119/69 99 05/24/18 12:00 05/24/18 12:00 05/24/18 12:00 05/24/18 12:00 05/24/18 12:00 Assessment/ Plan: Nephrology. Feeling much better and wants to go home. No acute events overnight. Good urine output. Vitals, medications, blood work and imaging reviewed in the chart. General: Oriented x3, Cooperative HEENT: Normocephalic Neck: Supple, JVD distended Respiratory: Diminished Cardiovascular: Regular rate/rhythm, Edema Gastrointestinal: Soft and benign, Non-distended Musculoskeletal: No clubbing, No contractures Integumentary: No rashes Neurological: Normal speech Blood work reviewed in the chart. Initial serum creatinine 2.46 Imagings Data: EXAM DESCRIPTION: RAD - Chest Single View - 05/21/2018 6:34 pm CLINICAL HISTORY: DYSPNEA Chest pain. COMPARISON: No comparisons FINDINGS: Portable technique limits examination quality. Moderate bilateral pulmonary opacities are noted likely representing pulmonary edema. The heart is mildly enlarged in size. No displaced fractures. IMPRESSION: Moderate CHF versus volume overload pattern. DIASTOLIC (NORMALS) SYSTOLIC (NORMALS) IVSd 1.4 (0.6-1.2) LA Diam 4.3 (1.9-4.0) LVEF 69% LVIDd 4.3 (3.5-5.7) LVIDs 2.7 (2.0-3.5) %FS 39% LVPWd 1.5 (0.6-1.2) Ao Diam 2.5 (2.0-3.7) 2 DIMENSIONAL ASSESSMENT: RIGHT ATRIUM: DILATED LEFT ATRIUM: DILATED RIGHT VENTRICLE: DILATED LEFT VENTRICLE: NORMAL TRICUSPID VALVE: NORMAL MITRAL VALVE: NORMAL PULMONIC VALVE: NORMAL AORTIC VALVE: SCLEROSIS PERICARDIAL EFFUSION: NONE AORTIC ROOT: NORMAL LEFT VENTRICULAR WALL MOTION: NORMAL. DOPPLER/COLOR FLOW: NO AORTIC STENOSIS OR AORTIC REGURGITATION. MILD MITRAL REGURGITATION. MODERATE TRICUSPID REGURGITATION. SEVERE PULMONARY HYPERTENSION. ESTIMATED RIGHT VENTRICULAR SYSTOLIC PRESSURE 66mmHg. COMMENTS: NORMAL LEFT VENTRICULAR EJECTION FRACTION. AORTIC SCLEROSIS WITH NO AORTIC STENOSIS/ AORTIC REGURGITATION. DILATED LEFT ATRIUM, RIGHT ATRIUM AND RIGHT VENTRICLE. MILD MITRAL REGURGITATION. MODERATE TRICUSPID REGURGITATION. SEVERE PULMONARY HYPERTENSION. Conclusions/Impression: A/ STEVIE likely CRS. CKD IV with proteinuria. A/C Diastolic CHF. Pulmonary HTN. DM II with CKD. HTN with CKD. Anemia in chronic illness. BPH with LUTS. Moderate protein malnutrition. Hypocalcemia. P/ Continue current POC and Medications. Continue diuretics. Give potassium today. No NSAIDs. AM labs. Daily weight. Follow up with Dr. Joseph in the nephrology clinic.
--- NOTE | 2018-05-25 03:35 | DS ---
Date of Discharge: 05/24/2018 Consultants: 1.Dr. Roldan, Cardiology. 2.Dr. Adams with Nephrology. Procedures: None. Admitting Diagnoses: 1.Bboib-jc-phgnmzi systolic heart failure. 2.Diabetes mellitus type 2 with long-term use of insulin. 3.Chronic obstructive pulmonary disease, chronic bronchitis. 4.Chronic respiratory failure, on home oxygen. 5.Essential hypertension. 6.Coronary artery disease, anvik artery and anvik heart, without angina. 7.Obesity, body mass index 38.9. Discharge Diagnoses: 1.Msvkp-mb-mewjtrf diastolic heart failure, ejection fraction 69%. 2.Severe pulmonary hypertension. 3.Vphhl-rq-juznqne kidney disease stage 3. 4.Diabetes mellitus type 2 with long-term use of insulin with hyperglycemia. 5.Chronic obstructive pulmonary disease, chronic bronchitis. 6.Chronic respiratory failure secondary to chronic obstructive pulmonary disease and congestive hear t failure, on home O2 at 3 L. 7.Morbid obesity. 8.Essential hypertension. 9.Gout. 10.Coronary artery disease, anvik artery and anvik heart, without angina. 11.Noncompliance. 12.Atrial fibrillation on Eliquis, controlled ventricular rate. 13.Rheumatoid arthritis. Hospital Course: The patient is an 83-year-old male who normally goes to the [facility], comes in to the [facility] with worsening shortness of breath. The patient was recently at [facility] and left AMA. The patien t was found to have CHF exacerbation. He was started on IV diuretics. Echocardiogram was obtained. His ejection fraction was in his 60s. He did have some severe pulmonary hypertension. Cardiology a nd Nephrology were consulted. The patient was diuresed and had negative fluid balance. His symptoms improved significantly. The patient was counseled regarding fluid-restricted and sodium-restricted diet. The patient's creatinine also improved. He does take 900 mg of gabapentin twice a day. Dose was decreased to 300 twice a day. He was counseled regarding use of NSAIDs to avoid NSAIDs altogethe r. Overall, the patient did well during the hospital course. The patient had significant improvemen t in his symptoms. He will need to follow up with his primary care physician at the [facility] in 2 to 3 day s; follow up with desktop publishing associate, Dr. Roldan, in 2 weeks; follow up with automotive alignment specialist, Dr. Joseph, in 2 weeks; establish care with coil placer for treatment of severe pulmonary hypertension; and retur n to ER for worsening condition. Diet: Low-sodium, fluid-restricted diet. Activity: As tolerated. Medications: As per medication reconciliation list. Physical Examination: General: Awake, alert, oriented x3. Elderly male, morbidly obese. CV: S1 and S2. No murmurs. Respiratory: Moving air well bilaterally. Gastrointestinal: Abdomen is soft, nontender, nondistended. Positive bowel sounds. Extremities: No clubbing or cyanosis; 2+ edema in bilateral lower extremities. Neurologic: Nonfocal. Total time spent discharging the patient was 37 minutes. /MODLola Voice ID: [id number] Report ID: [id number]
== END 2018-05-24 12:29 | disposition home health service (06) | DRG 291 ==
LOC: ER 16:20 → ERHOLD 20:19 → 4TH 21:54
PROVIDERS: ADMIT Internal Medicine; ATTEND Family Medicine
DX: I13.0 Hypertensive heart and chronic kidney disease with heart failure and stage 1 through stage 4 chronic kidney disease, or unspecified chronic kidney disease (principal); I50.33 Acute on chronic diastolic (congestive) heart failure; J96.10 Chronic respiratory failure, unspecified whether with hypoxia or hypercapnia; E44.0 Moderate protein-calorie malnutrition; N17.9 Acute kidney failure, unspecified; N18.3 Chronic kidney disease, stage 3 (moderate); E11.22 Type 2 diabetes mellitus with diabetic chronic kidney disease; E11.65 Type 2 diabetes mellitus with hyperglycemia; Z79.4 Long term (current) use of insulin; I27.20 Pulmonary hypertension, unspecified; J44.9 Chronic obstructive pulmonary disease, unspecified; E66.01 Morbid (severe) obesity due to excess calories; Z68.38 Body mass index [BMI] 38.0-38.9, adult; I25.10 Atherosclerotic heart disease of native coronary artery without angina pectoris; Z79.01 Long term (current) use of anticoagulants; M06.9 Rheumatoid arthritis, unspecified; M10.9 Gout, unspecified; R80.9 Proteinuria, unspecified; D63.1 Anemia in chronic kidney disease; E83.51 Hypocalcemia; I48.91 Unspecified atrial fibrillation
CPT/HCPCS: 36415; 71045; 80048; 80061; 80076; 81003; 81015; 82962; 83690; 83735; 83880; 84100; 84484; 84550; 85025; 93005; 93306; 94760; 96374; 97116; 97163; 97530; 99284; J1650; J1940; J7512

== ENCOUNTER 2018-06-27 20:37 | Observation (INO) | payer OTHER ==
--- OUTSIDE RECORDS SUMMARY | 2018-06-27 20:40 | XMS REPORT ---
:1935 [facility] Address [address] [place] [address] [place] [id number] Care Team Providers Name Role Phone Unavailable Unavailable Unavailable Problems This patient has no known problems. Allergies, Adverse Reactions, Alerts This patient has no known allergies or adverse reactions. Medications This patient has no known medications.
[2018-06-27 22:15] LABS: Absolute Lymphocytes (CBC) 3.6 K/uL (0.7-4.9); Absolute Monocytes 0.8 K/uL (0.1-1.3); Absolute Neutrophil 3.6 K/uL (1.8-8.0); Basophils % 0.6 % (0-1.3); Eosinophils % 2.2 % (0-4.4); Hematocrit 41.5 % (39.6-49.0); Lymphocytes % 44.2 % (15.3-44.8); MPV 9.3 fL (7.6-11.3); Monocytes % 9.8 % (3.3-12.3); RBC Red Blood Cell Count 4.81 M/uL (4.33-5.43)
[2018-06-27 22:35] LABS: Potassium 6.3 mmol/L (3.5-5.1)
[2018-06-27 22:38] LABS: Anisocytosis 1+; Blood Morphology Comment NOTED (NOT SEEN); Platelet Estimate ADEQ
[2018-06-27] MEDS ORDERED: D50W 25 GM/50 ML SYRINGE IV ONE (22:59)
[2018-06-27] MEDS ORDERED: INSULIN -REGULAR HUMAN 50 UNIT/0.5 ML ML ONE (22:59)
[2018-06-27] MEDS ORDERED: CALCIUM GLUCONATE 1 GM IVPB 1 GM/50 ML BAG IV ONE (23:12)
--- NOTE | 2018-06-27 23:17 | EDPHYS ---
Physician Documentation [facility] Name: Jorge Crespo Age: 83 yrs Sex: Male : 1935 Arrival Date: 06/27/2018 Time: 20:42 Bed 8 Private MD: ED Physician Mark Ellison HPI: 06/27 22:05 This 83 yrs old Male presents to ER via Wheelchair with complaints of high K+.kb 22:05 Pt had blood work done at the [facility] today. Was called and told to come to the nearest ER kb for very high potassium. Denies muscle cramps or palpitations. Onset: The symptoms/episode began/occurred today. The patient has not experienced similar symptoms in the past. The patient has not recently seen a physician. Pt was started on spirinolactone a month ago. Historical: - Allergies: 21:30 No Known Allergies; ak1 - Home Meds: 21:30 Eliquis oral oral [Active]; simvastatin 10 mg Oral tab 1 tab once daily [Active]; ak1 bumetanide 2 mg Oral tab 1 tab 2 times per day [Active]; Ferrous Sulfate Oral [Active]; gabapentin 300 mg oral cap 1 cap 2 times daily [Active]; Levemir FlexTouch subcutaneous subcutaneous [Active]; insulin [Active]; leflunomide 10 mg oral tab 1 tab once daily [Active]; Metoprolol Tartrate Oral [Active]; prednisone 5 mg/5 mL Oral soln once daily [Active]; tamsulosin 0.4 mg oral cp24 1 cap once daily [Active]; tramadol 50 mg Oral tab 1 tab every 6 hours [Active]; Spironolactone Oral [Active]; finasteride oral oral [Active]; - PMHx: 21:30 a-fib; Diabetes - IDDM; CHF; Myocardial infarction; Rheumatoid Arthritis; ak1 - PSHx: 21:30 bilateral knees; kidney; ak1 - Immunization history:: Adult Immunizations not up to date. - Social history:: Smoking status: Patient/guardian denies using tobacco. - Ebola Screening: : No symptoms or risks identified at this time. ROS: 22:04 Constitutional: Negative for fever, chills, and weight loss, Cardiovascular: Negative kb for chest pain, palpitations, and edema, Respiratory: Negative for shortness of breath, cough, wheezing, and pleuritic chest pain, Abdomen/GI: Negative for abdominal pain, nausea, vomiting, diarrhea, and constipation, Back: Negative for injury and pain, MS/Extremity: Negative for injury and deformity, Skin: Negative for injury, rash, and discoloration, Neuro: Negative for headache, weakness, numbness, tingling, and seizure. Exam: 22:04 Constitutional: This is a well developed, well nourished patient who is awake, alert, kb and in no acute distress. Head/Face: Normocephalic, atraumatic. ENT: Nares patent. No nasal discharge, no septal abnormalities noted. Tympanic membranes are normal and external auditory canals are clear. Oropharynx with no redness, swelling, or masses, exudates, or evidence of obstruction, uvula midline. Mucous membranes moist. Neck: Trachea midline, no thyromegaly or masses palpated, and no cervical lymphadenopathy. Supple, full range of motion without nuchal rigidity, or vertebral point tenderness. No Meningismus. Chest/axilla: Normal chest wall appearance and motion. Nontender with no deformity. No lesions are appreciated. Cardiovascular: Regular rate and rhythm with a normal S1 and S2. No gallops, murmurs, or rubs. Normal PMI, no JVD. No pulse deficits. Respiratory: Lungs have equal breath sounds bilaterally, clear to auscultation and percussion. No rales, rhonchi or wheezes noted. No increased work of breathing, no retractions or nasal flaring. Abdomen/GI: Soft, non-tender, with normal bowel sounds. No distension or tympany. No guarding or rebound. No evidence of tenderness throughout. Skin: Warm, dry with normal turgor. Normal color with no rashes, no lesions, and no evidence of cellulitis. MS/ Extremity: Pulses equal, no cyanosis. Neurovascular intact. Full, normal range of motion. Neuro: Awake and alert, GCS 15, oriented to person, place, time, and situation. Cranial nerves II-XII grossly intact. Motor strength 5/5 in all extremities. Sensory grossly intact. Cerebellar exam normal. Normal gait. Vital Signs: 21:30 BP 113 / 85; Pulse 95; Resp 18; Temp 97.6(O); Pulse Ox 98% on R/A; Weight 105.69 kg ak1 (R); Height 5 ft. 6 in. (167.64 cm) (R); Pain 0/10; 22:25 BP 110 / 82; Pulse 98; Resp 18; Temp 97.6; Pulse Ox 98% on R/A; ak1 21:30 Body Mass Index 37.61 (105.69 kg, 167.64 cm) ak1 MDM: 21:16 Patient medically screened. kb 22:04 Data reviewed: vital signs, nurses notes. Data interpreted: Pulse oximetry: on room air kb is 98 %. Interpretation: normal. 22:47 Counseling: I had a detailed discussion with the patient and/or guardian regarding: the kb historical points, exam findings, and any diagnostic results supporting the discharge/admit diagnosis, lab results, the need for further work-up and treatment in the hospital. 23:16 Physician consultation: Stefania Villalobos MD was contacted at 23:16, regarding admission, kb to the telemetry unit. patient's condition, and will see patient in ED, shortly. 06/27 21:38 Order name: CBC with Diff; Complete Time: 22:39 kb 06/27 21:38 Order name: Basic Metabolic Panel; Complete Time: 22:39 kb 06/27 22:18 Order name: Manual Differential; Complete Time: 22:39 EDIA 06/27 23:39 Order name: CBC with Automated Diff EDIA 06/27 23:39 Order name: CBC with Automated Diff EDIA 06/27 23:39 Order name: Comprehensive Metabolic Panel EDIA 06/27 21:38 Order name: EKG; Complete Time: 21:38 kb 06/27 23:39 Order name: CONS Pharmacy Consult EDIA 06/27 23:39 Order name: Comprehensive Metabolic Panel EDIA 06/27 23:40 Order name: Comprehensive Metabolic Panel EDIA 06/27 21:38 Order name: IV Start; Complete Time: 22:09 kb 06/27 21:38 Order name: EKG - Nurse/Tech; Complete Time: 21:50 kb 06/27 23:39 Order name: Heart Healthy EDIA Administered Medications: 23:17 Drug: Insulin Regular Human 10 units {Co-Signature: lp1 (Thelma Torrez RN).} Route: IVP; ak1 Site: right antecubital; 23:59 Follow up: Response: No adverse reaction ak1 23:17 Drug: D50W 50 ml Route: IVP; Site: right antecubital; ak1 23:59 Follow up: Response: No adverse reaction ak1 23:17 Drug: Calcium Gluconate 1 grams Route: IVPB; Infused Over: 60 mins; Site: right ak1 antecubital; 06/28 00:41 Follow up: IV Status: Completed infusion ak1 Disposition: 06/27/18 23:17 Hospitalization ordered by Stefania Villalobos for Observation. Preliminary diagnosis are Acute kidney failure - acute on chronic, Hyperkalemia. - Bed requested for Telemetry/MedSurg (observation). - Status is Observation. ak1 - Condition is Stable. - Problem is new. - Symptoms are unchanged. UTI on Admission? No Addendum: 06/30/2018 19:35 Co-signature as Attending Physician, Mark Ellison MD. g s Signatures: Dispatcher [employer] [facility] Kenyatta Mcdermott, DINING CAR WAITER/WAITRESS-C DINING CAR WAITER/WAITRESS-Ckb Digna Chinchilla RN XIN Carina May RN RN [facility] Mark Ellison MD MD Thelma Torrez RN 1 Corrections: (The following items were deleted from the chart) 06/27 23:42 23:17 Hospitalization Ordered by Stefania Villalobos MD for Observation. Preliminary diagnosis is Acute kidney failure - acute on chronic; Hyperkalemia. Bed requested for Telemetry/MedSurg (observation). Status is Observation. Condition is Stable. Problem is new. Symptoms are unchanged. UTI on Admission? No. 23:49 23:39 Basic Metabolic Panel ordered. [facility] 06/28 00:42 06/27 23:42 06/27/2018 23:17 Hospitalization Ordered by Stefania Villalobos MD for ak1 Observation. Preliminary diagnosis is Acute kidney failure - acute on chronic; Hyperkalemia. Bed requested for Telemetry/MedSurg (observation). Status is Observation. Condition is Stable. Problem is new. Symptoms are unchanged. UTI on Admission? No. mw
--- NOTE | 2018-06-27 23:17 | ER ---
Nurse's Notes [facility] Name: Jorge Crespo Age: 83 yrs Sex: Male : 1935 Arrival Date: 06/27/2018 Time: 20:42 Bed 8 Private MD: Diagnosis: Acute kidney failure-acute on chronic;Hyperkalemia Presentation: 06/27 21:21 Presenting complaint: Patient states: seen at [facility] today for lab work. [place] nurse called at ak1 1999 stating pt K+ "is very high". Transition of care: patient was not received from another setting of care. Onset of symptoms was June 27, 2018. Risk Assessment: Do you want to hurt yourself or someone else? Patient reports no desire to harm self or others. Initial Sepsis Screen: Does the patient meet any 2 criteria? No. Patient's initial sepsis screen is negative. Does the patient have a suspected source of infection? No. Patient's initial sepsis screen is negative. Note pt sees Dr. Nazario for cardiology. Dr. Wiley for ESRD. Care prior to arrival: None. 21:21 Method Of Arrival: Wheelchair ak 21:21 Acuity: MELISSA 3 ak1 Triage Assessment: 21:30 General: Appears in no apparent distress. Behavior is calm, cooperative. Pain: Denies ak1 pain. EENT: No signs and/or symptoms were reported regarding the EENT system. Neuro: No deficits noted. Cardiovascular: No deficits noted. Respiratory: No deficits noted. GI: No signs and/or symptoms were reported involving the gastrointestinal system. : No signs and/or symptoms were reported regarding the genitourinary system. Derm: No signs and/or symptoms reported regarding the dermatologic system. Musculoskeletal: No signs and/or symptoms reported regarding the musculoskeletal system. Historical: - Allergies: 21:30 No Known Allergies; ak1 - Home Meds: 21:30 Eliquis oral oral [Active]; simvastatin 10 mg Oral tab 1 tab once daily [Active]; ak1 bumetanide 2 mg Oral tab 1 tab 2 times per day [Active]; Ferrous Sulfate Oral [Active]; gabapentin 300 mg oral cap 1 cap 2 times daily [Active]; Levemir FlexTouch subcutaneous subcutaneous [Active]; insulin [Active]; leflunomide 10 mg oral tab 1 tab once daily [Active]; Metoprolol Tartrate Oral [Active]; prednisone 5 mg/5 mL Oral soln once daily [Active]; tamsulosin 0.4 mg oral cp24 1 cap once daily [Active]; tramadol 50 mg Oral tab 1 tab every 6 hours [Active]; Spironolactone Oral [Active]; finasteride oral oral [Active]; - PMHx: 21:30 a-fib; Diabetes - IDDM; CHF; Myocardial infarction; Rheumatoid Arthritis; ak1 - PSHx: 21:30 bilateral knees; kidney; ak1 - Immunization history:: Adult Immunizations not up to date. - Social history:: Smoking status: Patient/guardian denies using tobacco. - Ebola Screening: : No symptoms or risks identified at this time. Screenin:32 Abuse screen: Denies threats or abuse. Denies injuries from another. Nutritional ak1 screening: No deficits noted. Tuberculosis screening: No symptoms or risk factors identified. Fall Risk None identified. Assessment: 21:33 Reassessment: Patient appears in no apparent distress at this time. No changes from ak1 previously documented assessment. see triage assessment. Vital Signs: 21:30 BP 113 / 85; Pulse 95; Resp 18; Temp 97.6(O); Pulse Ox 98% on R/A; Weight 105.69 kg ak1 (R); Height 5 ft. 6 in. (167.64 cm) (R); Pain 0/10; 22:25 BP 110 / 82; Pulse 98; Resp 18; Temp 97.6; Pulse Ox 98% on R/A; ak1 21:30 Body Mass Index 37.61 (105.69 kg, 167.64 cm) ak1 ED Course: 20:42 Patient arrived in ED. es 21:13 Kenyatta Mcdermott FNP-C is PHCP. kb 21:13 Mark Ellison MD is Attending Physician. kb 21:21 Carina May, XIN is Primary Nurse. ak1 21:23 Triage completed. ak1 21:30 Arm band placed on Patient placed in an exam room, on a stretcher, on pulse oximetry, ak1 Patient notified of wait time. 21:32 Patient has correct armband on for positive identification. Bed in low position. Call ak1 light in reach. Side rails up X 1. Pulse ox on. NIBP on. 22:08 Inserted saline lock: 20 gauge in right antecubital area, using aseptic technique. oe Blood collected. 22:14 No provider procedures requiring assistance completed. ak1 23:16 Stefania Villalobos MD is Hospitalizing Provider. kb 23:57 Patient admitted, IV remains in place. ak1 Administered Medications: 23:17 Drug: Insulin Regular Human 10 units {Co-Signature: el1 (Thelma Torrez RN).} Route: IVP; ak1 Site: right antecubital; 23:59 Follow up: Response: No adverse reaction ak1 23:17 Drug: D50W 50 ml Route: IVP; Site: right antecubital; ak1 23:59 Follow up: Response: No adverse reaction ak1 23:17 Drug: Calcium Gluconate 1 grams Route: IVPB; Infused Over: 60 mins; Site: right ak1 antecubital; 06/28 00:41 Follow up: IV Status: Completed infusion ak1 Outcome: 06/27 23:17 Decision to Hospitalize by Provider. kb 23:18 Condition: good ak1 23:18 Instructed on the need for admit. 23:57 Admitted to Tele accompanied by tech, family with patient, via wheelchair, with oxygen, ak1 with chart. 06/28 00:42 Patient left the ED. ak1 Signatures: Kenyatta Mcdermott FNP-C FNP-Jannet Torres Amber, RN RN ak1 [place] oe Thelma Torrez RN lp1
[2018-06-28 01:05] VITALS: BMI 36.5
[2018-06-28 01:31] LABS: Albumin 3.5 g/dL (3.4-5.0); Bilirubin Total 0.2 mg/dL (0.2-1.0); Protein, Total 7.4 g/dL (6.4-8.2)
[2018-06-28 01:32] LABS: Potassium 6.2 mmol/L (3.5-5.1)
[2018-06-28] MEDS: NA CHLORIDE 0.9% 1,000 ML IV SCH ×2 (02:04→13:58)
[2018-06-28] MEDS: FUROSEMIDE 40 MG/4 ML VIAL IV SCH ×3 (02:06→17:16)
--- NOTE | 2018-06-28 05:32 | EKG ---
Test Date: 2018-06-27 Test Time: 21:23:07 Nurse Companion: MAYURI MEASUREMENT RESULTS: Intervals: Rate: 97 [place]: QRSD: 92 QT: 344 QTc: 436 [place]: P: [place]: QRS: 48 T: 101 INTERPRETIVE STATEMENTS: Atrial fibrillation Abnormal ECG Compared to ECG 04/20/2018 17:32:01 ST (T wave) deviation no longer present Electronically Signed On 06-28-18 05:31:09 CDT by Laith Roldan
[2018-06-28 05:59] LABS: Urine Appearance CLEAR; Urine Bilirubin NEGATIVE (NEG); Urine Blood NEGATIVE (NEG); Urine Color YELLOW; Urine Glucose NEGATIVE (NEG); Urine Protein 2+ (NEG); Urine Urobilinogen 0.2 mg/dL (0.2-1.0)
[2018-06-28 06:03] LABS: Urine Microscopic Reflex ORDER UMIC
[2018-06-28 06:11] LABS: Urine Bacteria <20 /HPF (NONE SEEN); Urine Culture Reflex Order NOT NEEDED; Urine RBC NONE SEEN /HPF (NONE SEEN)
[2018-06-28 06:38] LABS: Absolute Lymphocytes (CBC) 4.3 K/uL (0.7-4.9); Absolute Monocytes 0.7 K/uL (0.1-1.3); Absolute Neutrophil 3.8 K/uL (1.8-8.0); Basophils % 1.1 % (0-1.3); Eosinophils % 2.3 % (0-4.4); Hematocrit 40.4 % (39.6-49.0); Lymphocytes % 47.1 % (15.3-44.8); MPV 9.3 fL (7.6-11.3); Monocytes % 7.5 % (3.3-12.3); RBC Red Blood Cell Count 4.68 M/uL (4.33-5.43)
[2018-06-28 07:05] LABS: Albumin 3.3 g/dL (3.4-5.0); Bilirubin Total 0.2 mg/dL (0.2-1.0); Protein, Total 6.9 g/dL (6.4-8.2)
[2018-06-28] MEDS ORDERED: TRAMADOL HCL 50 MG TAB PO PRN (07:05)
[2018-06-28 07:24] LABS: Potassium 5.9 mmol/L (3.5-5.1)
[2018-06-28] MEDS: LEFLUNOMIDE 10 MG PO SCH (09:00)
[2018-06-28] MEDS: predniSONE 5 MG TAB PO SCH (09:01)
[2018-06-28] MEDS: APIXABAN 2.5 MG TABLET PO SCH ×2 (09:01→22:13)
[2018-06-28] MEDS: FERROUS SULFATE 325 MG TAB PO SCH ×2 (09:01→22:12)
[2018-06-28] MEDS: TAMSULOSIN 0.4 MG SR CAP PO SCH (09:02)
[2018-06-28] MEDS: GABAPENTIN 300 MG CAP PO SCH ×2 (09:02→22:13)
[2018-06-28] MEDS: INSULIN GLARGINE 100 UNITS/ML SQ SCH ×2 (09:03→22:12)
[2018-06-28] MEDS ORDERED: D50W 25 GM/50 ML SYRINGE IV PRN (09:11)
[2018-06-28] MEDS ORDERED: GLUCAGON 1 MG/VIAL IM PRN (09:11)
[2018-06-28] MEDS: INSULIN -REGULAR HUMAN 50 UNIT/0.5 ML ML SQ SCH ×3 (11:42→22:11)
--- NOTE | 2018-06-28 16:39 | P.CNS ---
Date of Consult: 06/28/18 Reason for Consult: Hyperkalemia Requesting Physician: Stefania Villaloobs Chief Complaint: Hyperkalemia History of Present Illness: 83 yo WM CKD, DM presented to the ER with severe hyperkalemia in the setting of CKD and Hyperkalemia. Reports eating bananas, nuts and dairy regularly. Started spironolactone one month ago with an improvement in his edema. States that he is feeling well. No alleviating fx. Follows with Dr. Joseph in the clinic. 22:05 This 83 yrs old Male presents to ER via Wheelchair with complaints of high K+.kb 22:05 Pt had blood work done at the [place] today. Was called and told to come to the nearest ER kb for very high potassium. Denies muscle cramps or palpitations. Onset: The symptoms/episode began/occurred today. The patient has not experienced similar symptoms in the past. The patient has not recently seen a physician. Pt was started on spirinolactone a month ago. Allergies No Known Allergies Allergy (Unverified 05/21/18 20:33) Home medications list reviewed: Yes Home Medications: Apixaban [Eliquis *] 2.5 mg PO BID 05/21/18 Bumetanide [Bumex] 2 mg PO BID 05/21/18 Ferrous Sulfate 325 mg PO BID 05/21/18 Insulin Detemir [Levemir] 16 unit SQ BID 05/21/18 Simvastatin 10 mg PO DAILY 05/21/18 Tamsulosin HCl 0.4 mg PO DAILY 05/21/18 predniSONE [Prednisone*] 5 mg PO DAILY 05/21/18 traMADol HCL [Ultram*] 50 mg PO BIDP PRN 05/21/18 Gabapentin 300 mg PO BID #60 capsule 05/24/18 Metoprolol Tartrate [Lopressor*] 25 mg PO BID 6AM 6PM #60 tab 05/24/18 Spironolactone [Aldactone] 50 mg PO BID #60 tablet 05/24/18 Leflunomide 10 mg PO DAILY 06/28/18 - Past Medical/Surgical History Diabetic: Yes -: IDDM -: CHF -: Afib -: [place] -: Rheumatoid Arthritis -: Chronic Kidney Disease -: Knees bilaterally -: kidney - Family History Sister Medical History: Hypertension, Diabetes, Cancer - Social History Alcohol use: No CD- Drugs: No Caffeine use: Yes Place of Residence: Home Review of Systems 10-point ROS is otherwise unremarkable Respiratory: SOB with Excertion Cardiovascular: Edema Physical Examination Temp Pulse Resp BP Pulse Ox 96.9 F 94 H 16 147/85 H 96 06/28/18 12:00 06/28/18 12:00 06/28/18 12:00 06/28/18 12:00 06/28/18 12:00 General: Oriented x3, Cooperative Neck: Supple Respiratory: Clear to auscultation bilaterally, Normal air movement Cardiovascular: Regular rate/rhythm, Edema Gastrointestinal: Soft and benign, Non-distended, No guarding Musculoskeletal: No clubbing, No contractures Integumentary: No rashes, No cyanosis Neurological: Normal speech Laboratory Data (last 24 hrs) 06/27/18 22:05: Sodium 135 L, Potassium 6.3 H*, BUN 99 H, Creatinine 3.31 H, Glucose 203 H 06/27/18 22:05: WBC 8.2, Hgb 13.3 L, Hct 41.5, Plt Count 191 Conclusions/Impression: A/ Hyperkalemia in the setting of spironolactone and a high potassium diet. CKD IV with proteinuria. DM II with CKD. HTN with CKD/ CHF. Diastolic CHF, chronic. Moderate MR. Pulmonary HTN. Hypocalcemia. P/ Continue current POC and Medications. Hold spironolactone. Continue furosemide. Gentle IVF. Monitor volume status. Give Kayexalate. Change to a Renal Diet. No NSAIDs. AM labs. Daily weight. Thank you kindly for the consultation.
[2018-06-28] MEDS: METOPROLOL TAR 25 MG TAB PO SCH (17:16)
[2018-06-28] MEDS ORDERED: SOD POLYSTYREN SUL 15 GM/60 ML UCUP PO ONE (19:43)
[2018-06-28] MEDS ORDERED: NA CHLORIDE 0.9% 1,000 ML IV SCH (20:00)
[2018-06-28] MEDS: ATORVASTATIN 10 MG TAB PO SCH ×2 (21:00→22:12)
[2018-06-29] MEDS: FUROSEMIDE 40 MG/4 ML VIAL IV SCH ×2 (01:00→10:31)
[2018-06-29] MEDS: METOPROLOL TAR 25 MG TAB PO SCH (05:44)
[2018-06-29 06:46] LABS: Absolute Lymphocytes (CBC) 3.6 K/uL (0.7-4.9); Absolute Monocytes 0.6 K/uL (0.1-1.3); Absolute Neutrophil 3.6 K/uL (1.8-8.0); Basophils % 0.8 % (0-1.3); Eosinophils % 2.7 % (0-4.4); Hematocrit 39.9 % (39.6-49.0); Lymphocytes % 44.7 % (15.3-44.8); MPV 9.3 fL (7.6-11.3); Monocytes % 7.6 % (3.3-12.3); RBC Red Blood Cell Count 4.56 M/uL (4.33-5.43)
[2018-06-29 06:55] LABS: Phosphorus 5.3 mg/dL (2.5-4.9); Potassium 5.4 mmol/L (3.5-5.1); Uric Acid 5.2 mg/dL (3.5-7.2)
[2018-06-29 07:01] LABS: Urine Appearance CLEAR; Urine Bilirubin NEGATIVE (NEG); Urine Blood TRACE (NEG); Urine Color YELLOW; Urine Glucose NEGATIVE (NEG); Urine Protein 2+ (NEG); Urine Urobilinogen 0.2 mg/dL (0.2-1.0); Urine pH 5.5 (5.0-7.0)
[2018-06-29] MEDS: INSULIN -REGULAR HUMAN 50 UNIT/0.5 ML ML SQ SCH ×2 (07:30→11:30)
[2018-06-29] MEDS ORDERED: GLUCAGON 1 MG/VIAL IM PRN (07:33)
[2018-06-29] MEDS ORDERED: D50W 25 GM/50 ML SYRINGE IV ONE ×2 (07:33→09:00)
[2018-06-29] MEDS ORDERED: D50W 25 GM/50 ML SYRINGE IV PRN (07:33)
[2018-06-29] MEDS ORDERED: INSULIN -REGULAR HUMAN 50 UNIT/0.5 ML ML IV ONE (07:34)
[2018-06-29] MEDS ORDERED: SOD POLYSTYREN SUL 15 GM/60 ML UCUP PO ONE ×2 (07:35→14:48)
[2018-06-29 07:44] LABS: UR MICROALBUMIN 64.3 mg/dL (< 1.9)
[2018-06-29 07:58] LABS: Urine Bacteria <20 /HPF (NONE SEEN); Urine Culture Reflex Order NOT NEEDED; Urine RBC <5 /HPF (NONE SEEN)
[2018-06-29] MEDS ORDERED: SODIUM BICARB 50 MEQ/50ML VIAL IV SCH (08:00)
[2018-06-29] MEDS: INSULIN GLARGINE 100 UNITS/ML SQ SCH (09:00)
[2018-06-29] MEDS ORDERED: CALCITROL 0.25 MCG CAP PO SCH (09:00)
[2018-06-29] MEDS: LEFLUNOMIDE 10 MG PO SCH (09:00)
[2018-06-29] MEDS: APIXABAN 2.5 MG TABLET PO SCH (09:00)
[2018-06-29] MEDS ORDERED: VITAMIN D 5,000 UNIT CAP PO SCH (09:00)
[2018-06-29] MEDS: GABAPENTIN 300 MG CAP PO SCH (10:29)
[2018-06-29] MEDS: TAMSULOSIN 0.4 MG SR CAP PO SCH (10:29)
[2018-06-29] MEDS: FERROUS SULFATE 325 MG TAB PO SCH (10:30)
[2018-06-29] MEDS: predniSONE 5 MG TAB PO SCH (10:30)
[2018-06-29 12:51] VITALS: BP 114/69; TEMP 97.1
[2018-06-29 13:50] VITALS: O2SAT 98
[2018-06-29 13:58] LABS: Potassium 5.7 mmol/L (3.5-5.1)
--- NOTE | 2018-06-29 14:13 | P.HP ---
Certification for Inpatient Patient admitted to: Observation With expected LOS: <2 Midnights Patient will require the following post-hospital care: None Practitioner: I am a practitioner with admitting privileges, knowledge of patient current condition, hospital course, and medical plan of care. Services: Services provided to patient in accordance with Admission requirements found in Title 42 Section 412.3 of the Code of Federal Regulations Patient History Date of Service: 06/28/18 Reason for admission: Hyperkalemia History of Present Illness: Patient is an 83-year-old gentleman who came to the hospital as he was sent in by his primary care provider because he had elevated potassium level. He said he felt fine and did not feel any weakness. In the ER his potassium was greater than 6. He was admitted to the hospital and treated for his hyperkalemia. He was recently started on Aldactone. Because of the dosing it may have resulted in his hyperkalemia. He is also on additional medications that can cause potassium retention. And will need to be educated on diet because of his chronic kidney disease as well. He will be admitted to the hospital for observation. Allergies No Known Allergies Allergy (Unverified 05/21/18 20:33) Home Medications: Apixaban [Eliquis *] 2.5 mg PO BID 05/21/18 Bumetanide [Bumex] 2 mg PO BID 05/21/18 Ferrous Sulfate 325 mg PO BID 05/21/18 Insulin Detemir [Levemir] 16 unit SQ BID 05/21/18 Simvastatin 10 mg PO DAILY 05/21/18 Tamsulosin HCl 0.4 mg PO DAILY 05/21/18 predniSONE [Prednisone*] 5 mg PO DAILY 05/21/18 traMADol HCL [Ultram*] 50 mg PO BIDP PRN 05/21/18 Gabapentin 300 mg PO BID #60 capsule 05/24/18 Metoprolol Tartrate [Lopressor*] 25 mg PO BID 6AM 6PM #60 tab 05/24/18 Leflunomide 5 mg PO BID 06/28/18 - Past Medical/Surgical History Has patient received pneumonia vaccine in the past: Yes Diabetic: Yes -: IDDM -: CHF -: Afib -: [place] -: Rheumatoid Arthritis -: Chronic Kidney Disease -: Knees bilaterally -: kidney - Family History Sister Medical History: Hypertension, Diabetes, Cancer - Social History Alcohol use: No CD- Drugs: No Caffeine use: Yes Place of Residence: Home Review of Systems 10-point ROS is otherwise unremarkable Physical Examination - Vital Signs Temperature: 97.1 F Blood Pressure: 114/69 Pulse: 100 Respirations: 18 Pulse Ox (%): 98 - Physical Exam General: Alert, In no apparent distress, Oriented x3 HEENT: Atraumatic, PERRLA, Mucous membr. moist/pink, EOMI, Sclerae nonicteric Neck: Supple, 2+ carotid pulse no bruit, No LAD, Without JVD or thyroid abnormality Respiratory: Clear to auscultation bilaterally, Normal air movement Cardiovascular: Regular rate/rhythm, Normal S1 S2, No murmurs Gastrointestinal: Normal bowel sounds, Soft and benign, Non-distended, No tenderness Musculoskeletal: No clubbing, No swelling, No tenderness Integumentary: No rashes Neurological: Normal gait, Normal speech, Normal strength at 5/5 x4 extr, Normal tone, Sensation intact, Cranial nerves 3-12 intact, Normal affect Lymphatics: No axilla or inguinal lymphadenopathy Assessment & Plan - Problems (Diagnosis) (1) Hyperkalemia Current Visit: Yes Status: Acute (2) Congestive heart failure Current Visit: Yes Status: Acute (3) CAD (coronary artery disease) Onset Date: 05/22/18 Current Visit: No Status: Acute Qualifiers: Coronary Disease-Associated Artery/Lesion type: [place] artery [place] vs. transplanted heart: [place] heart Associated angina: without angina Qualified Code(s): I25.10 - Atherosclerotic heart disease of [place] coronary artery without angina pectoris (4) COPD (chronic obstructive pulmonary disease) Onset Date: 05/22/18 Current Visit: No Status: Acute Qualifiers: COPD type: unspecified COPD Qualified Code(s): J44.9 - Chronic obstructive pulmonary disease, unspecified (5) Diabetes mellitus Onset Date: 05/22/18 Current Visit: No Status: Acute Qualifiers: Diabetes mellitus type: type 2 Diabetes mellitus fdc insulin use: with exterminator termite use Diabetes mellitus complication status: with unspecified complications Qualified Code(s): E11.8 - Type 2 diabetes mellitus with unspecified complications; Z79.4 - correction (current) use of insulin (6) HTN (hypertension) Onset Date: 05/22/18 Current Visit: No Status: Acute Qualifiers: Hypertension type: essential hypertension Qualified Code(s): I10 - Essential (primary) hypertension - Plan Plan: 1. continue monitoring potassium level 2. Gentle hydration 3. nephrology consultation 4. DC Aldactone and hold Bumex today 5. Kayexalate 6. GI and DVT prophylaxis Discharge Plan: Home Plan to discharge in: 48 Hours - Advance Directives Does patient have a Living Will: Yes Does patient have a Durable POA for Healthcare: Yes - Code Status/Comfort Care Code Status Assessed: Yes Code Status: Full Code Critical Care: No Time Spent Managing PTS Care (In Minutes): 45
--- NOTE | 2018-06-29 15:47 | PN ---
Date of Progress Note: 06/29/2018 Subjective: The patient is seen and examined. He still feels good. Denies any other issues. Overn ight, volume status has remained stable. He received some Kayexalate overnight. Physical Examination: Vital Signs: Reviewed and are stable. General: He appears well, in no acute distress. Lungs: Clear. Neck: No JVD was noted. Extremities: With chronic edema, but nothing acute. Laboratory Data: Current updated labs are still pending. Creatinine of 2.81, potassium of 5.4. His creatinine is improving from 3.3 down to 2.8 at this time. CBC is also showing stable hemoglobin, h ematocrit, and platelet count. Medications: Current medications have been reviewed. Impression: 1.Acute on chronic renal insufficiency, likely related to over diuresis. The patient's spironolacto ne is currently on hold, which I agree with and his Bumex can be resumed once he goes home with off s pironolactone. 2.Hyperkalemia, likely related to spironolactone as well. We will continue to hold it. 3.History of chronic atrial fibrillation, on anticoagulation with Eliquis. 4.Type 2 diabetes, on insulin. 5.Rheumatoid arthritis, on chronic prednisone. 6.Chronic pain, on gabapentin. Plan: The patient is doing well. Potassium is improving. The patient can be on a low-potassium t, which the handout has been given to him. He will resume his home dose of Bumex, however, will hol d spironolactone at this time given worsening of renal function as well as hyperkalemia. We will als o repeat his labs again on . Orders have been given to him and I will follow back with his l abs and restart the spironolactone at a lower dose if his renal function and potassium are appropriat e at that point. The plan was discussed with the patient in detail. All questions were answered. L ow and high potassium foods handout was given. We will follow up closely. VV/MODL Voice ID: [id number] Report ID: [id number]
--- NOTE | 2018-07-01 08:41 | P.DS ---
Discharge Date: 06/29/18 Disposition: ROUTINE DISCHARGE Discharge Condition: GOOD Reason for Admission: Hyperkalemia Consultations: Nephrology - Problems (1) Hyperkalemia Status: Acute (2) Congestive heart failure Status: Acute (3) CAD (coronary artery disease) Onset Date: 05/22/18 Status: Acute Qualifiers: Coronary Disease-Associated Artery/Lesion type: [place] artery [place] vs. transplanted heart: [place] heart Associated angina: without angina Qualified Code(s): I25.10 - Atherosclerotic heart disease of [place] coronary artery without angina pectoris (4) COPD (chronic obstructive pulmonary disease) Onset Date: 05/22/18 Status: Acute Qualifiers: COPD type: unspecified COPD Qualified Code(s): J44.9 - Chronic obstructive pulmonary disease, unspecified (5) Diabetes mellitus Onset Date: 05/22/18 Status: Acute Qualifiers: Diabetes mellitus type: type 2 Diabetes mellitus manager long term care insulin use: with manager long term care use Diabetes mellitus complication status: with unspecified complications Qualified Code(s): E11.8 - Type 2 diabetes mellitus with unspecified complications; Z79.4 - vermin exterminator (current) use of insulin (6) HTN (hypertension) Onset Date: 05/22/18 Status: Acute Qualifiers: Hypertension type: essential hypertension Qualified Code(s): I10 - Essential (primary) hypertension Brief History of Present Illness: Patient is an 83-year-old gentleman who came to the hospital as he was sent in by his primary care provider because he had elevated potassium level. He said he felt fine and did not feel any weakness. In the ER his potassium was greater than 6. He was admitted to the hospital and treated for his hyperkalemia. He was recently started on Aldactone. Because of the dosing it may have resulted in his hyperkalemia. He is also on additional medications that can cause potassium retention. And will need to be educated on diet because of his chronic kidney disease as well. He will be admitted to the hospital for observation. Hospital Course: Patient was given multiple medications along with Kayexalate. Potassium was stable. Nephrology was okay with discharge with close outpatient follow-up. Patient will be discharged on Kayexalate daily for next 4 days. Vital Signs/Physical Exam: Temp Pulse Resp BP Pulse Ox 97.1 F 100 H 18 114/69 98 06/29/18 14:13 06/29/18 14:13 06/29/18 14:13 06/29/18 14:13 06/29/18 14:13 General: Alert, In no apparent distress, Oriented x3 Laboratory Data at Discharge: WBC 8.1 K/uL (4.3-10.9) 06/29/18 06:10 Hgb 12.6 g/dL (13.6-17.9) L 06/29/18 06:10 Hct 39.9 % (39.6-49.0) 06/29/18 06:10 Plt Count 198 K/uL (152-406) 06/29/18 06:10 Sodium 138 mmol/L (136-145) 06/29/18 13:28 Potassium 5.7 mmol/L (3.5-5.1) H* 06/29/18 13:28 BUN 77 mg/dL (7-18) H 06/29/18 13:28 Creatinine 2.78 mg/dL (0.55-1.3) H 06/29/18 13:28 Glucose 256 mg/dL (74-106) H 06/29/18 13:28 Uric Acid 5.2 mg/dL (3.5-7.2) 06/29/18 06:10 Phosphorus 5.3 mg/dL (2.5-4.9) H 06/29/18 06:10 Magnesium 2.0 mg/dL (1.8-2.4) 06/29/18 06:10 Total Bilirubin 0.2 mg/dL (0.2-1.0) 06/28/18 06:02 AST 13 U/L (15-37) L 06/28/18 06:02 ALT 26 U/L (12-78) 06/28/18 06:02 Alkaline Phosphatase 103 U/L (45-117) 06/28/18 06:02 Home Medications: Apixaban [Eliquis *] 2.5 mg PO BID 05/21/18 Bumetanide [Bumex] 2 mg PO BID 05/21/18 Ferrous Sulfate 325 mg PO BID 05/21/18 Insulin Detemir [Levemir] 16 unit SQ BID 05/21/18 Simvastatin 10 mg PO DAILY 05/21/18 Tamsulosin HCl 0.4 mg PO DAILY 05/21/18 predniSONE [Prednisone*] 5 mg PO DAILY 05/21/18 traMADol HCL [Ultram*] 50 mg PO BIDP PRN 05/21/18 Gabapentin 300 mg PO BID #60 capsule 05/24/18 Metoprolol Tartrate [Lopressor*] 25 mg PO BID 6AM 6PM #60 tab 05/24/18 Leflunomide 5 mg PO BID 06/28/18 Sodium Polystyrene Sulfonate 15 gm PO DAILY #5 powder 06/30/18 New Medications: Sodium Polystyrene Sulfonate 15 gm PO DAILY #5 powder Patient Discharge Instructions: OK TO DC IV AND DC HOME. FOLLOW-UP WITH PRIMARY CARE PROVIDER IN 1-2 WEEKS. FOLLOW-UP WITH Dr. Bourgeois IN 1 WEEK. RETURN TO THE ER IF symptoms worsens. CALL DR. AHUJA AT [phone] IF ANY QUESTIONS REGARDING HOSPITAL STAY. PLEASE CALL THE FLOOR AT [phone] IF ANY MEDICATION OR NURSING QUESTIONS. Diet: Renal Activity: Fall precautions Followup: Bridger Joseph MD [ACTIVE - CAN ADMIT] - 1-2 Weeks Daren Coon MD [UNKNOWN] - 1-2 Weeks Time spent managing pt's care (in minutes): 30
[2018-07-03 03:26] LABS: HBsAG Nonreactive (Nonreactive)
== END 2018-06-29 16:56 | disposition home or self-care (01) ==
LOC: ER 20:37 → ERHOLD 23:34 → 4TH 06-28 00:10
PROVIDERS: ADMIT Hospitalist; ATTEND Hospitalist
DX: E87.5 Hyperkalemia (principal); I13.0 Hypertensive heart and chronic kidney disease with heart failure and stage 1 through stage 4 chronic kidney disease, or unspecified chronic kidney disease; E11.22 Type 2 diabetes mellitus with diabetic chronic kidney disease; N18.4 Chronic kidney disease, stage 4 (severe); I50.32 Chronic diastolic (congestive) heart failure; I25.10 Atherosclerotic heart disease of native coronary artery without angina pectoris; J44.9 Chronic obstructive pulmonary disease, unspecified; I48.2 Chronic atrial fibrillation; Z79.01 Long term (current) use of anticoagulants; M06.9 Rheumatoid arthritis, unspecified; G89.29 Other chronic pain
CPT/HCPCS: 96365; 93005; 85025 ×3; 81001; 80048 ×3; 36415 ×2; 83735; 84100; 82962 ×6; 84550; 87493; 83036; 82570; 80053 ×2; 86704; 86317; 83880; 87340; 86803; 82043; 96375; 99285; J1940 ×5; J0610; J7030 ×3; G0378 ×2; 81003; 81015; J7512

== ENCOUNTER 2018-10-15 14:47 | Emergency (ER) | payer OTHER ==
--- OUTSIDE RECORDS SUMMARY | 2018-10-15 14:50 | XMS REPORT ---
:1935 [facility] Address [address] [place] [address] [place] [id number] Care Team Providers Name Role Phone Unavailable Unavailable Unavailable Problems This patient has no known problems. Allergies, Adverse Reactions, Alerts This patient has no known allergies or adverse reactions. Medications This patient has no known medications.
[2018-10-15] MEDS ORDERED: NA CHLORIDE 0.9% 500 ML ONE ×2 (15:18→16:45)
[2018-10-15] MEDS ORDERED: INSULIN -REGULAR HUMAN 50 UNIT/0.5 ML ML ONE (15:34)
[2018-10-15 15:39] LABS: Absolute Lymphocytes (CBC) 1.9 K/uL (0.7-4.9); Basophils % 0.3 % (0-1.3); Eosinophils % 0.2 % (0-4.4); Hematocrit 35.1 % (39.6-49.0); Lymphocytes % 14.1 % (15.3-44.8); Monocytes % 8.5 % (3.3-12.3); RBC Red Blood Cell Count 3.87 M/uL (4.33-5.43)
[2018-10-15] MEDS ORDERED: LEVALBUTEROL 1.25 MG/3 ML NEB ONE (15:39)
[2018-10-15 15:47] LABS: Protime INR 1.26
[2018-10-15] MEDS ORDERED: METOPROLOL TAR 50 MG TAB ONE (15:52)
[2018-10-15 16:14] LABS: ALT/SGPT 40 U/L (12-78); AST/SGOT 22 U/L (15-37); Alkaline Phosphatase 150 U/L (45-117); BUN Blood Urea Nitrogen 71 mg/dL (7-18); Bicarbonate 28 mmol/L (21-32); Bilirubin Direct 0.2 mg/dL (0-0.2); Bilirubin Total 0.5 mg/dL (0.2-1.0); CKMB Creatine Kinase MB 2.5 ng/mL (0.3-3.6); Creatine Phosphokinase 67 U/L (39-308); Glucose Level 276 mg/dL (74-106); Lipase 324 U/L (73-393); Potassium 5.4 mmol/L (3.5-5.1); Protein, Total 7.2 g/dL (6.4-8.2); Sodium Level 137 mmol/L (136-145); Troponin (Emerg Dept Use Only) < 0.02 ng/mL (0.0-0.045)
--- NOTE | 2018-10-15 16:16 | RAD REPORT ---
EXAM DESCRIPTION: RAD - Chest Pa And Lat (2 Views) - 10/15/2018 4:02 pm CLINICAL HISTORY: Cough, possible pneumonia COMPARISON: May 2018 TECHNIQUE: AP and lateral views obtained peer FINDINGS: The lungs are slightly underinflated. No focal consolidation in the left hemithorax. Early opacification in the right middle lobe is suspected. Failure/volume overload not suspected. Heart s ize is normal and central vasculature is within normal limits. No pleural effusion or pneumothorax s een. No acute bony finding noted. No aortic abnormality. IMPRESSION: Suspected early right middle lobe pneumonia.
[2018-10-15] MEDS ORDERED: CEFTRIAXONE/SWI 1gm 1 GM/10 ML SYR ONE (16:44)
[2018-10-15] MEDS ORDERED: BUMETANIDE 1 MG/4 ML VIAL IV ONE (17:00)
[2018-10-15 18:23] LABS: Potassium 4.7 mmol/L (3.5-5.1)
--- NOTE | 2018-10-15 18:32 | ER ---
Nurse's Notes [facility] Name: Jorge Crespo Age: 83 yrs Sex: Male : 1935 Arrival Date: 10/15/2018 Time: 14:49 Bed 24 Private MD: Diagnosis: Pneumonia, unspecified organism;Hyperkalemia-resolved Presentation: 10/15 14:59 Presenting complaint: states: We were at the [facility] to see his doctors, when sg they thought he should be admitted for pneumonia due to the results of the chest xray, pt reports nasal congestion and nasal drainage, cough and chest congestion for several days. Transition of care: patient was not received from another setting of care. Resp Distress? No respiratory distress is noted at this time. Onset of symptoms was October 12, 2018. Risk Assessment: Do you want to hurt yourself or someone else? Patient reports no desire to harm self or others. Initial Sepsis Screen: Does the patient meet any 2 criteria? RR > 20 per min. Does the patient have a suspected source of infection? Yes: Productive cough/pneumonia. Care prior to arrival: None. 14:59 Method Of Arrival: Wheelchair 14:59 Acuity: MELISSA 2 sg Historical: - Allergies: 15:02 No Known Allergies; sg - Home Meds: 15:34 metoprolol tartrate 50 mg oral tab 2 times per day [Active]; Eliquis 2.5 mg oral tab 2 aj times per day [Active]; bumetanide 2 mg Oral tab 1 tab 2 times per day [Active]; Ferrous Sulfate Oral twice a day [Active]; finasteride 5 mg oral tab once daily [Active]; gabapentin 300 mg Oral cap 1 cap 2 times daily [Active]; Levemir FlexTouch 16 units subcutaneous twice a day [Active]; leflunomide 10 mg Oral tab 1 tab once daily [Active]; prednisone 5 mg/5 mL Oral soln once daily [Active]; simvastatin 10 mg Oral tab 1 tab once daily [Active]; spironolactone 25 mg oral tab once daily [Active]; tamsulosin 0.4 mg Oral cp24 1 cap once daily [Active]; tramadol 50 mg Oral tab 1 tab every 6 hours [Active]; allopurinol 300 mg Oral tab 1 tab once daily [Active]; - PMHx: 15:02 a-fib; CHF; Diabetes - IDDM; Myocardial infarction; Rheumatoid Arthritis; sg - PSHx: 15:02 bilateral knees; kidney; sg - Immunization history:: Adult Immunizations up to date. - Social history:: Smoking status: unknown. - Ebola Screening: : Patient negative for fever greater than or equal to 101.5 degrees Fahrenheit, and additional compatible Ebola Virus Disease symptoms Patient denies exposure to infectious person Patient denies travel to an Ebola-affected area in the 21 days before illness onset No symptoms or risks identified at this time. Screenin:26 Abuse screen: Denies threats or abuse. Denies injuries from another. Nutritional aj screening: No deficits noted. Tuberculosis screening: No symptoms or risk factors identified. Fall Risk None identified. Assessment: 15:26 General: Appears in no apparent distress. uncomfortable, obese, Behavior is calm, aj cooperative, appropriate for age. Pain: Denies pain. Neuro: Level of Consciousness is awake, alert, obeys commands, Oriented to person, place, time, situation, Appropriate for age. Cardiovascular: Denies chest pain, Capillary refill < 3 seconds in bilateral fingers Patient's skin is warm and dry. Respiratory: Reports shortness of breath at rest cough that is productive, persistent Airway is patent Respiratory effort is even, unlabored, Respiratory pattern is symmetrical, tachypnea Breath sounds are diminished in left posterior lower lobe and right posterior lower lobe. Derm: Skin is intact, is healthy with good turgor, Skin is pink, warm \T\ dry. normal. 16:19 Reassessment: Patient appears in no apparent distress at this time. No changes from aj previously documented assessment. Patient and/or family updated on plan of care and expected duration. Pain level reassessed. Patient is alert, oriented x 3, equal unlabored respirations, skin warm/dry/pink. is at bedside Patient denies pain at this time. Patient states feeling better. Patient states symptoms have improved. 16:41 Reassessment: PAtient provided coffee per provider authorization. aj 18:42 Reassessment: Patient appears in no apparent distress at this time. No changes from aj previously documented assessment. Patient and/or family updated on plan of care and expected duration. Pain level reassessed. Patient is alert, oriented x 3, equal unlabored respirations, skin warm/dry/pink. Patient denies pain at this time. Patient states feeling better. Patient states symptoms have improved. Vital Signs: 15:00 BP 138 / 92; Pulse 132; Resp 24; Temp 98.9; Pulse Ox 97% on 3 lpm NC; sg 15:29 BP 124 / 72; Pulse 117; Resp 20; Pulse Ox 99% on 2 lpm NC; aj 16:10 BP 131 / 109; Pulse 133; Resp 23; Pulse Ox 98% on 2 lpm NC; aj 16:23 BP 149 / 89; Pulse 122; Resp 22; Pulse Ox 95% on 2 lpm NC; aj 17:03 BP 147 / 107; Pulse 116; Resp 19; Pulse Ox 97% on 2 lpm NC; aj 17:41 BP 119 / 82; Pulse 109; Resp 20; Pulse Ox 96% on 2 lpm NC; aj 18:33 BP 115 / 57; Pulse 110; Resp 16; Pulse Ox 97% on 2 lpm NC; aj ED Course: 14:49 Patient arrived in ED. rg4 14:54 Virginia Baugh [facility]NP-C [facility]. snw 14:54 Stefania Costello MD is Attending Physician. snw 14:54 Danuta Bullock RN is Primary Nurse. aj 15:00 Triage completed. sg 15:00 Arm band placed on. sg 15:00 Inserted saline lock: 20 gauge in right antecubital area, using aseptic technique. jp3 Blood collected. 15:00 Initial lab(s) drawn, by va, sent to lab. First set of blood cultures drawn by me. jp3 15:15 Second set of blood cultures drawn by va. jp3 15:21 Placed in gown. Bed in low position. Call light in reach. Side rails up X 1. Side rails jp3 up X2. Warm blanket given. Pillow given. Verbal reassurance given. cytology technologist on. Pulse ox on. NIBP on. 15:23 TSH Sent. jp3 15:23 Lipase Sent. jp3 15:23 Liver (Hepatic) Function Sent. jp3 15:23 Creatine Phosphokinase Sent. jp3 15:23 CKMB Creatine Kinase MB Sent. jp3 15:23 CBC with Automated Diff Sent. jp3 15:23 Blood Culture Sent. jp3 15:23 Basic Metabolic Panel Sent. jp3 15:23 Basic Metabolic Panel Sent. jp3 15:23 Blood Culture Adult (2) Sent. jp3 15:23 CBC with Diff Sent. jp3 15:23 Ckmb Sent. jp3 15:23 CPK Sent. jp3 15:23 Lactate Sent. jp3 15:24 LFT's Sent. jp3 15:24 Lipase Sent. jp3 15:24 Procalcitonin Sent. jp3 15:24 Protime (+inr) Sent. jp3 15:24 Ptt, Activated Sent. jp3 15:24 Troponin (emerg Dept Use Only) Sent. jp3 15:42 EKG done, by vocational rehabilitation technician. reviewed by Virginia MARS. at1 16:00 Chest Pa And Lat (2 Views) XRAY In Process Unspecified. EDMS 16:12 Notified Nurse Practitioner and/or Physician Operations Leader of vital signs. aj 18:42 No provider procedures requiring assistance completed. IV discontinued, intact, aj bleeding controlled, No redness/swelling at site. Pressure dressing applied. Administered Medications: 15:08 Drug: NS 0.9% 500 ml Route: IV; Rate: bolus; Site: right antecubital; aj 15:21 Drug: Insulin Regular Human 5 units {Co-Signature: mg2 (Vitaliy Brand RN).} Route: aj IVP; Site: right antecubital; 16:17 Follow up: Response: Blood sugar is lowered aj 15:22 Drug: Insulin Regular Human 5 units {Co-Signature: mg2 (Vitaliy Brand RN).} Route: aj Sub-Q; Site: right upper arm; 16:17 Follow up: Response: Blood sugar is lowered aj 15:26 Drug: Xopenex (3) 1.25 mg Route: Inhalation; aj 16:18 Follow up: Response: Wheezing diminished aj 15:35 CANCELLED (Physician Discretion): Aspirin Chewable Tablet 324 mg PO once; 81 mg tablets aj x 4 15:38 Drug: Metoprolol 50 mg Route: PO; aj 18:32 Follow up: Response: Blood pressure is lowered aj 16:37 Drug: Rocephin 1 grams Route: IV; Rate: calculated rate; Site: right antecubital; aj 18:44 Follow up: Response: No adverse reaction; IV Status: Completed infusion; IV Intake: 10mlaj 16:41 Drug: Bumex 1 mg Route: IVP; Site: right antecubital; vic 18:33 Follow up: Response: No adverse reaction aj Point of Care Testing: Blood Glucose: 15:15 Blood Glucose: 309 mg/dL; aj 16:19 Blood Glucose: 208 mg/dL; aj Ranges: Intake: 18:44 IV: 10ml; Total: 10ml. vic Outcome: 18:31 Discharge ordered by . snclare 18:42 Discharged to home via wheelchair, with family. vic 18:42 Condition: good 18:42 Discharge instructions given to patient, family, Instructed on discharge instructions, follow up and referral plans. medication usage, Demonstrated understanding of instructions, follow-up care, medications, Prescriptions given X 3. 18:44 Patient left the ED. vic Signatures: Dispatcher [employer] EDRome Brewer RN RN sg Myers, Amanda, RN RN Virginia Hinton, CASUAL SHOE INSPECTOR-C CASUAL SHOE INSPECTOR-Csnw Danuta Carrera, machine hand EKG Tat1 Ariella Kyle4 Rashawn Arizmendi jp3 Vitaliy Brand RN mg2 Corrections: (The following items were deleted from the chart) 15:02 14:59 Acuity: MELISSA 3 [facility] 16:24 15:29 BP 124 / 72; Pulse 117bpm; Resp 20bpm; Pulse Ox 99% RA; vic 16:24 16:10 BP 131 / 109; Pulse 133bpm; Resp 23bpm; Pulse Ox 98% RA; aj vic
--- NOTE | 2018-10-15 18:32 | EDPHYS ---
Physician Documentation [facility] Name: Jorge Crespo Age: 83 yrs Sex: Male : 1935 Arrival Date: 10/15/2018 Time: 14:49 Bed 24 Private MD: ED Physician Stefania Costello HPI: 10/15 15:14 This 83 yrs old Male presents to ER via Wheelchair with complaints of Cough, snw Congestion. 15:14 The patient or guardian reports cough, flu symptoms. Onset: The symptoms/episode snw began/occurred gradually, 1 week(s) ago, and became persistent. Severity of symptoms: At their worst the symptoms were moderate. Modifying factors: The symptoms are alleviated by nothing. Associated signs and symptoms: The patient has no apparent associated signs or symptoms. The patient has experienced similar episodes in the past. The patient has been recently seen by a physician: the patient's primary care provider, earlier today, with similar presenting complaints, sent to be admitted at [facility] in [place]. Pt declined. Historical: - Allergies: 15:02 No Known Allergies; sg - Home Meds: 15:34 metoprolol tartrate 50 mg oral tab 2 times per day [Active]; Eliquis 2.5 mg oral tab 2 aj times per day [Active]; bumetanide 2 mg Oral tab 1 tab 2 times per day [Active]; Ferrous Sulfate Oral twice a day [Active]; finasteride 5 mg oral tab once daily [Active]; gabapentin 300 mg Oral cap 1 cap 2 times daily [Active]; Levemir FlexTouch 16 units subcutaneous twice a day [Active]; leflunomide 10 mg Oral tab 1 tab once daily [Active]; prednisone 5 mg/5 mL Oral soln once daily [Active]; simvastatin 10 mg Oral tab 1 tab once daily [Active]; spironolactone 25 mg oral tab once daily [Active]; tamsulosin 0.4 mg Oral cp24 1 cap once daily [Active]; tramadol 50 mg Oral tab 1 tab every 6 hours [Active]; allopurinol 300 mg Oral tab 1 tab once daily [Active]; - PMHx: 15:02 a-fib; CHF; Diabetes - IDDM; Myocardial infarction; Rheumatoid Arthritis; sg - PSHx: 15:02 bilateral knees; kidney; sg - Immunization history:: Adult Immunizations up to date. - Social history:: Smoking status: unknown. - Ebola Screening: : Patient negative for fever greater than or equal to 101.5 degrees Fahrenheit, and additional compatible Ebola Virus Disease symptoms Patient denies exposure to infectious person Patient denies travel to an Ebola-affected area in the 21 days before illness onset No symptoms or risks identified at this time. ROS: 15:14 Eyes: Negative for injury, pain, redness, and discharge, ENT: Negative for injury, snw pain, and discharge, Neck: Negative for injury, pain, and swelling, Cardiovascular: Negative for chest pain, palpitations, and edema. 15:14 Abdomen/GI: Negative for abdominal pain, nausea, vomiting, diarrhea, and constipation, Back: Negative for injury and pain, : Negative for injury, bleeding, discharge, and swelling, MS/Extremity: Negative for injury and deformity, Skin: Negative for injury, rash, and discoloration, Neuro: Negative for headache, weakness, numbness, tingling, and seizure. 15:14 Constitutional: Positive for fatigue. 15:14 Respiratory: Positive for cough, with green sputum, wheezing. Exam: 15:12 Head/Face: Normocephalic, atraumatic. Eyes: Pupils equal round and reactive to light, snw extra-ocular motions intact. Lids and lashes normal. Conjunctiva and sclera are non-icteric and not injected. Cornea within normal limits. Periorbital areas with no swelling, redness, or edema. ENT: Nares patent. No nasal discharge, no septal abnormalities noted. Tympanic membranes are normal and external auditory canals are clear. Oropharynx with no redness, swelling, or masses, exudates, or evidence of obstruction, uvula midline. Mucous membranes moist. Neck: Trachea midline, no thyromegaly or masses palpated, and no cervical lymphadenopathy. Supple, full range of motion without nuchal rigidity, or vertebral point tenderness. No Meningismus. Chest/axilla: Normal chest wall appearance and motion. Nontender with no deformity. No lesions are appreciated. 15:12 Abdomen/GI: Soft, non-tender, with normal bowel sounds. No distension or tympany. No guarding or rebound. No evidence of tenderness throughout. Back: No spinal tenderness. No costovertebral tenderness. Full range of motion. Skin: Warm, dry with normal turgor. Normal color with no rashes, no lesions, and no evidence of cellulitis. MS/ Extremity: Pulses equal, no cyanosis. Neurovascular intact. Full, normal range of motion. Neuro: Awake and alert, GCS 15, oriented to person, place, time, and situation. Cranial nerves II-XII grossly intact. Motor strength 5/5 in all extremities. Sensory grossly intact. Cerebellar exam normal. Normal gait. Psych: Awake, alert, with orientation to person, place and time. Behavior, mood, and affect are within normal limits. 15:12 Constitutional: The patient appears alert, awake, obese. 15:12 Cardiovascular: Rate: tachycardic, Rhythm: regular, Heart sounds: normal, Edema: 2+ edema to level of left ankle and right ankle, JVD: is not appreciated. 15:12 Respiratory: the patient does not display signs of respiratory distress, Respirations: shallow respirations, tachypnea, Breath sounds: rhonchi, are located in both bases, wheezing: that is moderate, is scattered. 15:30 ECG was reviewed by the Attending Physician. snw Vital Signs: 15:00 BP 138 / 92; Pulse 132; Resp 24; Temp 98.9; Pulse Ox 97% on 3 lpm NC; sg 15:29 BP 124 / 72; Pulse 117; Resp 20; Pulse Ox 99% on 2 lpm NC; aj 16:10 BP 131 / 109; Pulse 133; Resp 23; Pulse Ox 98% on 2 lpm NC; aj 16:23 BP 149 / 89; Pulse 122; Resp 22; Pulse Ox 95% on 2 lpm NC; aj 17:03 BP 147 / 107; Pulse 116; Resp 19; Pulse Ox 97% on 2 lpm NC; aj 17:41 BP 119 / 82; Pulse 109; Resp 20; Pulse Ox 96% on 2 lpm NC; aj 18:33 BP 115 / 57; Pulse 110; Resp 16; Pulse Ox 97% on 2 lpm NC; aj MDM: 14:54 Patient medically screened. snw 18:32 Data reviewed: vital signs, nurses notes. Data interpreted: Pulse oximetry: on 2L(s) snw per nasal canula, is 96 %. Interpretation: acceptable. Counseling: I had a detailed discussion with the patient and/or guardian regarding: the historical points, exam findings, and any diagnostic results supporting the discharge/admit diagnosis, the presence of at least one elevated blood pressure reading (>120/80) during this emergency department visit, lab results, radiology results, the need for outpatient follow up, to return to the emergency department if symptoms worsen or persist or if there are any questions or concerns that arise at home, Curb 65 - 2, pt for trial outpt therapy, has O2 at home. Return precautions, risks, and benefits discussed.. 10/15 15:08 Order name: Basic Metabolic Panel 10/15 15:08 Order name: Blood Culture Adult (2) 10/15 15:08 Order name: CBC with Diff 10/15 15:08 Order name: Ckmb 10/15 15:08 Order name: CPK 10/15 15:08 Order name: Lactate; Complete Time: 16:02 10/15 15:08 Order name: LFT's 10/15 15:08 Order name: Lipase 10/15 15:08 Order name: Procalcitonin; Complete Time: 16:13 10/15 15:08 Order name: Protime (+inr); Complete Time: 16:02 10/15 15:08 Order name: Ptt, Activated; Complete Time: 16:02 10/15 15:08 Order name: Troponin (emerg Dept Use Only); Complete Time: 16:19 10/15 15:09 Order name: Basic Metabolic Panel; Complete Time: 16:19 [facility] 10/15 14:55 Order name: Chest Pa And Lat (2 Views) XRAY; Complete Time: 16:19 [facility] 10/15 15:09 Order name: Blood Culture [facility] 10/15 15:09 Order name: CBC with Automated Diff; Complete Time: 16:02 [facility] 10/15 15:10 Order name: CKMB Creatine Kinase MB; Complete Time: 16:19 [facility] 10/15 15:10 Order name: Creatine Phosphokinase; Complete Time: 16:19 [facility] 10/15 15:10 Order name: Liver (Hepatic) Function; Complete Time: 16:19 [facility] 10/15 15:10 Order name: Lipase; Complete Time: 16:19 [facility] 10/15 15:10 Order name: TSH; Complete Time: 16:13 [facility] 10/15 15:27 Order name: Glucose, Ancillary Testing [facility] 10/15 17:54 Order name: Chem 7; Complete Time: 18:29 snw 10/15 15:08 Order name: EKG - Nurse/Tech; Complete Time: 15:24 10/15 15:08 Order name: Accucheck; Complete Time: 15:11 10/15 15:08 Order name: Cardiac monitoring; Complete Time: 15:11 10/15 15:08 Order name: EKG - Nurse/Tech; Complete Time: 15:23 10/15 15:08 Order name: IV Saline Lock - Large Bore; Complete Time: 15:11 10/15 15:08 Order name: Labs collected and sent; Complete Time: 15:11 10/15 15:08 Order name: O2 Per Protocol; Complete Time: 15:11 10/15 15:08 Order name: O2 Sat Monitoring; Complete Time: 15:11 10/15 16:42 Order name: Diet 2 Gm Sodium; Complete Time: 16:42 10/15 17:06 Order name: Misc. Order: Repeat Chem 7 at 1800; Complete Time: 18:32 [facility] 10/15 17:45 Order name: EKG Electrocardiogram EDMS Administered Medications: 15:08 Drug: NS 0.9% 500 ml Route: IV; Rate: bolus; Site: right antecubital; aj 15:21 Drug: Insulin Regular Human 5 units {Co-Signature: mg2 (Vitaliy Brand RN).} Route: aj IVP; Site: right antecubital; 16:17 Follow up: Response: Blood sugar is lowered aj 15:22 Drug: Insulin Regular Human 5 units {Co-Signature: mg2 (Vitaliy Brand RN).} Route: aj Sub-Q; Site: right upper arm; 16:17 Follow up: Response: Blood sugar is lowered aj 15:26 Drug: Xopenex (3) 1.25 mg Route: Inhalation; aj 16:18 Follow up: Response: Wheezing diminished aj 15:35 CANCELLED (Physician Discretion): Aspirin Chewable Tablet 324 mg PO once; 81 mg tablets aj x 4 15:38 Drug: Metoprolol 50 mg Route: PO; aj 18:32 Follow up: Response: Blood pressure is lowered aj 16:37 Drug: Rocephin 1 grams Route: IV; Rate: calculated rate; Site: right antecubital; aj 18:44 Follow up: Response: No adverse reaction; IV Status: Completed infusion; IV Intake: 10mlaj 16:41 Drug: Bumex 1 mg Route: IVP; Site: right antecubital; aj 18:33 Follow up: Response: No adverse reaction aj Point of Care Testing: Blood Glucose: 15:15 Blood Glucose: 309 mg/dL; aj 16:19 Blood Glucose: 208 mg/dL; aj Ranges: Critical Glucose Levels:Adult <50 mg/dl or >400 mg/dl <40 mg/dl or >180 mg/dl Disposition: 19:46 Co-signature as Attending Physician, Stefania Costello MD. ma2 Disposition: 10/15/18 18:31 Discharged to Home. Impression: Pneumonia, unspecified organism, Hyperkalemia - resolved. - Condition is Stable. - Discharge Instructions: Hyperkalemia, Community-Acquired Pneumonia, Adult, Rehydration, Elderly. - Prescriptions for Augmentin 875- 125 mg Oral Tablet - take 1 tablet by ORAL route every 12 hours for 10 days; 20 tablet. Albuterol Sulfate 90 mcg/actuation - inhale 1-2 puff by INHALATION route every 4-6 hours; 1 Inhaler. Zithromax 500 mg Oral Tablet - take 1 tablet by ORAL route once daily for 5 days; 5 tablet. - Medication Reconciliation Form, Thank You Letter, Antibiotic Education, Prescription Opioid Use form. - Follow up: Private Physician; When: 2 - 3 days; Reason: Recheck today's complaints, Continuance of care, Re-evaluation by your physician. Follow up: Emergency Department; When: As needed; Reason: Worsening of condition. Signatures: Dispatcher [employer] EDNM Rome Bravo RN Danuta Pringle RN Virginia Ho, CORPORATE LEGAL MANAGER-C CORPORATE LEGAL MANAGER-Csnw Stefania Costello MD MD ma2 Vitaliy Brand RN mg2 Corrections: (The following items were deleted from the chart) 15:12 15:10 Chest Single View+RAD.RAD.BRZ ordered. [facility] 15:35 15:28 Aspirin Chewable Tablet 324 mg PO once; 81 mg tablets x 4 ordered. snw vic 18:44 18:31 10/15/2018 18:31 Discharged to Home. Impression: Pneumonia, unspecified organism; aj Hyperkalemia - resolved. Condition is Stable. Forms are Medication Reconciliation Form, Thank You Letter, Antibiotic Education, Prescription Opioid Use. Follow up: Private Physician; When: 2 - 3 days; Reason: Recheck today's complaints, Continuance of care, Re-evaluation by your physician. Follow up: Emergency Department; When: As needed; Reason: Worsening of condition. snw
--- NOTE | 2018-10-16 06:55 | EKG ---
Test Date: 2018-10-15 Test Time: 15:19:34 Hot Water Heater Installer: ED MEASUREMENT RESULTS: Intervals: Rate: 130 SD: QRSD: 84 QT: 302 QTc: 444 Otto: P: SD: QRS: 18 T: 95 INTERPRETIVE STATEMENTS: Atrial fibrillation with rapid ventricular response Nonspecific ST and T wave abnormality, probably digitalis effect Abnormal ECG Compared to ECG 06/27/2018 21:23:07 ST (T wave) deviation now present Electronically Signed On 10-16-18 06:53:17 CDT by Wiley Colón
[2018-10-16 19:59] VITALS: BP 115/57; TEMP 98.9; O2SAT 97
== END 2018-10-15 18:44 | disposition home or self-care (01) ==
LOC: ER 14:47
DX: J18.9 Pneumonia, unspecified organism (principal); E11.9 Type 2 diabetes mellitus without complications; I50.9 Heart failure, unspecified; I48.91 Unspecified atrial fibrillation; Z79.01 Long term (current) use of anticoagulants; Z79.4 Long term (current) use of insulin
CPT/HCPCS: 96365; 93005; 87040 ×2; 85025; 80048 ×2; 36415; 82550; 85610; 82962 ×2; 80076; 83605; 85730; 84443; 84484; 82553; 83690; 84145; 71046; 96375; 96372; 99285; 96366; J0696

== ENCOUNTER 2019-04-06 08:43 | Emergency (ER) | payer OTHER ==
--- OUTSIDE RECORDS SUMMARY | 2019-04-06 08:45 | XMS REPORT ---
:1935 [facility] Address [address] [place] [address] [place] [id number] Care Team Providers Name Role Phone Unavailable Unavailable Unavailable Problems This patient has no known problems. Allergies, Adverse Reactions, Alerts This patient has no known allergies or adverse reactions. Medications This patient has no known medications. Encounters Start End Encounter Admission Attending Care Care Encounter Date/Time Date/Time Type Type Clinicians Facility Department ID 2019-03-17 2019-03-17 Emergency E [id number] 09:33:00 09:33:00
[2019-04-06] MEDS ORDERED: NA CHLORIDE 0.9% 2,000 ML ONE (08:56)
[2019-04-06 09:08] LABS: Absolute Lymphocytes (CBC) 2.1 K/uL (0.7-4.9); Basophils % 0.4 % (0-1.3); Hematocrit 31.9 % (39.6-49.0); Lymphocytes % 10.6 % (15.3-44.8); MPV 9.7 fL (7.6-11.3); RBC Red Blood Cell Count 3.53 M/uL (4.33-5.43)
[2019-04-06] MEDS ORDERED: NOREPINEPHRINE 4mg/D5W 250mL 4 MG/250 ML BAG IV ONE ×2 (09:13→13:33)
[2019-04-06 09:22] LABS: Urine Blood NEGATIVE (NEG); Urine Glucose NEGATIVE (NEG); Urine Protein 1+ (NEG)
[2019-04-06] MEDS ORDERED: ACETAMINOPHEN 650MG/RECT SUPP PR ONE (09:24)
[2019-04-06] MEDS ORDERED: NA CHLORIDE 0.9% 1,000 ML ONE ×2 (09:24→10:42)
[2019-04-06 09:32] LABS: Protime INR 1.87
[2019-04-06 09:33] LABS: Urine Amorphous Sediment 3+ /HPF (NONE SEEN); Urine Bacteria <20 /HPF (NONE SEEN); Urine Culture Reflex Order NOT NEEDED; Urine RBC NONE SEEN /HPF (NONE SEEN)
[2019-04-06 09:46] LABS: Bilirubin Direct 0.4 mg/dL (0-0.2); Bilirubin Total 0.7 mg/dL (0.2-1.0); CKMB Creatine Kinase MB 2.5 ng/mL (0.3-3.6); Protein, Total 6.2 g/dL (6.4-8.2); Troponin (Emerg Dept Use Only) 0.06 ng/mL (0.0-0.045)
--- NOTE | 2019-04-06 09:48 | RAD REPORT ---
EXAM DESCRIPTION: RAD - Chest Single View - 04/06/2019 9:31 am CLINICAL HISTORY: unresponsive Chest pain. COMPARISON: Chest Pa And Lat (2 Views) dated 10/15/2018; Chest Single View dated 05/21/2018 FINDINGS: Portable technique limits examination quality. The lungs are underinflated but grossly clear. The heart is mildly enlarged in size. Trace left pleur al effusion is suspected.
[2019-04-06 09:51] LABS: Potassium 5.6 mmol/L (3.5-5.1)
[2019-04-06 09:55] LABS: Anisocytosis 1+; Blood Morphology Comment NOTED (NOT SEEN); Burr Cells 2+; Elliptocytes 1+; Platelet Estimate ADEQ; Poikilocytosis 2+
[2019-04-06] MEDS ORDERED: CEFTRIAXONE/SWI 1gm 2 GM/20 ML SYR ONE (10:01)
[2019-04-06 10:15] LABS: Arterial Blood Carboxyhemoglob 0.4 % (0-1.5); Blood O2 Saturation 99.3 % (92-98.5)
[2019-04-06] MEDS ORDERED: D50W 25 GM/50 ML SYRINGE/VIAL IV ONE (10:21)
[2019-04-06] MEDS ORDERED: INSULIN -REGULAR HUMAN 50 UNIT/0.5 ML ML ONE (10:21)
[2019-04-06] MEDS ORDERED: Caclcium Chloride 10% INJ SYR IV ONE (10:22)
--- NOTE | 2019-04-06 10:29 | ER ---
Nurse's Notes [facility] Name: Jorge Crespo Age: 83 yrs Sex: Male : 1935 Arrival Date: 04/06/2019 Time: 08:45 Bed 3 Private MD: Diagnosis: Taniya gangrene;Sepsis, unspecified organism;Hyperkalemia;Pneumonia, unspecified organism;Acute on chronic renal failure Presentation: 04/06 08:42 Presenting complaint: EMS states: he was minimally responsive when we arrived, pt from tw2 home, family said he hasnt made urine since Sunday, and that [facility] sent him into kidney failure, he has copd, recent end stage renal disease, not a dialysis pt, we were unsuccessful in our iv attempt. Transition of care: patient was not received from another setting of care. Onset of symptoms was April 06, 2019. Risk Assessment: Do you want to hurt yourself or someone else? Patient reports no desire to harm self or others. Initial Sepsis Screen: Does the patient meet any 2 criteria? RR > 20 per min. HR > 90 bpm. Yes Does the patient have a suspected source of infection? Yes: Dysuria/Frequency/Urgency/UTI If YES to both, name of provider notified: Donald Zamorano MD Care prior to arrival: Oxygen administered. via a non-rebreather mask. 08:42 Method Of Arrival: EMS: [facility] tw2 08:42 Acuity: MELISSA 1 tw2 Triage Assessment: 08:45 General: Appears Behavior is drowsy, listless. Neuro: Level of Consciousness is obeys tw2 commands, Oriented to person. Derm: Skin is mottled, Skin temperature is cold. Historical: - Allergies: 08:58 No Known Allergies; tw2 - Home Meds: 08:58 allopurinol 300 mg Oral tab 1 tab once daily [Active]; aspirin 81 mg Oral chew 1 tab tw2 once daily [Active]; atorvastatin 20 mg oral tab 1 tab once daily [Active]; brimonidine 0.2 % ophthalmic drop 1 drop every 8 hours [Active]; dorzolamide-timolol (PF) ophthalmic ophthalmic [Active]; ferrous sulfate 325 mg (65 mg iron) Oral tab [Active]; gabapentin 300 mg Oral cap 1 cap 2 times daily [Active]; Levemir FlexTouch 16 units subcutaneous twice a day [Active]; metoprolol tartrate 75 mg oral tab [Active]; prednisone 5 mg/5 mL Oral soln once daily [Active]; tamsulosin 0.4 mg Oral cp24 1 cap once daily [Active]; tramadol 50 mg Oral tab 1 tab every 6 hours [Active]; - PMHx: 08:58 a-fib; Rheumatoid Arthritis; Diabetes - IDDM; Myocardial infarction; CHF; tw2 - PSHx: 08:58 bilateral knees; kidney; tw2 - Immunization history:: Last tetanus immunization:. - Social history:: Patient uses Smoking status: . - Ebola Screening: : Patient denies travel to an Ebola-affected area in the 21 days before illness onset. Screenin:02 Abuse screen: Denies threats or abuse. Nutritional screening: No deficits noted. tw2 Tuberculosis screening: No symptoms or risk factors identified. Fall Risk Secondary diagnosis (15 points) impaired mobility. Assessment: 09:04 Reassessment: Dr Zamorano at bedside to place central line. ph 09:04 General: Appears distressed, uncomfortable, obese, Behavior is cooperative, drowsy, ph quiet. Neuro: Level of Consciousness is awake, lethargic, listless, Oriented to person, place, situation. 09:05 Pain: Denies pain. ph 09:09 Cardiovascular: Capillary refill is sluggish in bilateral fingers Rhythm is atrial ph fibrillation. Respiratory: Airway is patent Respiratory effort is even, Respiratory pattern is tachypnea. GI: Abdomen is round. : Reports inability to void, since Scout. Derm: Skin is fragile, is thin, Skin is pale, Skin temperature is cool. Musculoskeletal: Circulation, motion, and sensation intact. Range of motion: intact in all extremities. 09:09 : Swelling noted on scrotum. ph 09:55 Reassessment: Spo2 noted to have decreased to 85-90% on NRB at 15L, ERP notified and RT ph at bedside to draw ABGs. Reassessment: RT to repeat ABGs in approx 30 min, Spo2 remains low on NRB, BP improving w/ Levophed, bi-pap on standby. 10:33 Reassessment: Patient appears in no apparent distress at this time. RT at bedside to ph draw second ABG. 10:45 Reassessment: Patient appears in no apparent distress at this time. No changes from ph previously documented assessment. Pt placed on Bi-pap, tolerating well at this time, will repeat ABGs in 30 min to determine if pt will need to be intubated. 10:58 Reassessment: Pt taken to CT on bi-pap, accompanied by RN and RT. ph 12:00 Reassessment: Patient appears in no apparent distress at this time. No changes from ph previously documented assessment. 13:03 Reassessment: Patient appears in no apparent distress at this time. No changes from ph previously documented assessment. Patient and/or family updated on plan of care and expected duration. Pain level reassessed. Pt resting quietly w/ bi-pap in place, pt remains drowsy but opens eyes and responds verbally when addressed by name, awaiting transfer. 13:08 Reassessment: Report given to [facility] ETA 20 min. ph 13:24 Reassessment: Rep[ort given to XIN Alva at [facility]. ph 13:41 Reassessment: Patient appears in no apparent distress at this time. Patient and/or ph family updated on plan of care and expected duration. Pain level reassessed. [facility] at bedside, report given to flight nurse, preparing pt for transport. Vital Signs: 08:55 BP 68 / 33; Pulse 114; Resp 26; Temp 99.2(C); Pulse Ox 100% on Non-rebreather mask; tw2 09:01 Weight 102.06 kg (R); tw2 09:15 BP 68 / 49; Pulse 111; Resp 26 S; Pulse Ox 100% on Non-rebreather mask; iw 09:25 Temp 100.2(C); ph 09:45 BP 77 / 63; Pulse 108; Resp 24 S; Pulse Ox 92% on Non-rebreather mask; iw 10:05 BP 96 / 65; Pulse 111; Resp 24 S; Pulse Ox 100% on Non-rebreather mask; iw 10:15 BP 106 / 78; Pulse 114; Resp 22; Temp 99.1(C); Pulse Ox 85% on 100% Non-rebreather mask;ph 10:33 BP 107 / 71; Pulse 115; Resp 18; Temp 98.9; Pulse Ox 92% on 100% Non-rebreather mask; ph 10:45 BP 124 / 83; Pulse 115; Resp 18; Temp 98.8; Pulse Ox 88% on 60% BiPAP; ph 11:00 BP 125 / 93; Pulse 112; Resp 20; Temp 98.6; Pulse Ox 87% on 60% BiPAP; ph 11:27 BP 98 / 63; Pulse 117; Resp 18; Temp 98.7(C); Pulse Ox 84% on 40% BiPAP; ph 11:45 BP 116 / 70; Pulse 111; Resp 18; Temp 98.8(C); Pulse Ox 83% on 40% BiPAP; ph 12:00 BP 88 / 67; Pulse 115; Resp 20; Temp 98.8(C); Pulse Ox 81% on 40% BiPAP; ph 12:15 BP 90 / 60; Pulse 115; Resp 18; Temp 98.9(C); Pulse Ox 85% on 40% BiPAP; ph 12:31 BP 90 / 68; Pulse 110; Resp 18; Temp 99.0(C); Pulse Ox 86% on 40% BiPAP; ph 12:45 BP 86 / 61; Pulse 116; Resp 20; Temp 99.0(C); Pulse Ox 97% on 40% BiPAP; ph 13:00 BP 87 / 62; Pulse 113; Resp 18; Temp 99.0(C); Pulse Ox 98% on 40% BiPAP; ph 13:15 BP 89 / 71; Pulse 116; Resp 18; Temp 99.0; Pulse Ox 98% on 40% BiPAP; ph 13:30 BP 95 / 68; Pulse 113; Resp 18; Temp 99.0(C); Pulse Ox 98% on 40% BiPAP; ph 11:27 DR Zamorano aware of Spo2, ABGs x 3 done to confirm that O2 level is stable ph 13:00 pulse oximeter moved to finger ph Willa Coma Score: 13:11 Eye Response: to voice(3). Verbal Response: confused(4). Motor Response: localizes ph pain(5). Total: 12. ED Course: 08:42 Placed in gown. Bed in low position. Side rails up X2. client operations manager on. Pulse ox on. tw2 NIBP on. defibrillator monitor, Dr. Zamorano and Delia,RT , XIN Castro, XIN Wei and XIN Lenz at bedside at this time. 08:45 Patient arrived in ED. bd 08:50 Missed attempt(s): 22 gauge in left antecubital area. Bleeding controlled, band aid tw2 applied, catheter tip intact. 08:50 Inserted saline lock: 20 gauge in right antecubital area, using aseptic technique. ph 08:54 Triage completed. tw2 08:54 Arm band placed on. EKG completed in triage. Results shown to MD. tw2 08:55 Sanjuana Molina, RN is Primary Nurse. ph 08:59 Talley cath inserted, using sterile technique, 16 Fr., by pa, balloon inflated, to jl7 gravity drainage, urine specimen collected. other Temp cath used returned clear yellow urine. Patient tolerated well. 09:15 Assisted provider with central line placement. Set up central line tray. Triple lumen ph line placed in right femoral. Line placed by Donald Zamorano MD Placement verified by CXR, blood return, Dressed with Tegaderm, Patient tolerated well. Before procedure, did Practitioner(s) obtain informed consent? Yes. Patient \T\ family education about procedure, CLABSI prevention and S/S of infection? Yes. Time-out/Briefing performed prior to start of procedure? Yes. Was handwashing/sanitizing done immediately prior to procedure? Yes. Was patient positioned to in a way to prevent air embolism? Yes. Was procedure site sterilized? Yes, with betadine. Was the site allowed to dry? Yes. Was local anesthetic and/or sedation utilized? Yes. During the procedure, did the Practitioner(s) maintain a sterile field? Yes. Were unused ports clamped during insertion? Yes. Was a 2nd qualified MD obtained after 3 unsuccessful insertion attempts? No. Was blood aspirated from each lumen? Yes. After the procedure, did the Practitioner(s) clean the site and apply a sterile dressing? Yes. 09:23 Donald Zamorano MD is Attending Physician. kdr 09:29 Chest Single View XRAY In Process Unspecified. EDMS 10:25 Landon Mccodr MD is Hospitalizing Provider. kdr 11:17 CT Chest Abdomen Pelvis W/O Contrast In Process Unspecified. EDMS 12:09 attempted transfer to [facility]. bd 12:17 pt denied at [facility] due to no icu beds, per jennifer. bd 12:26 attempted transfer to [facility]. bd 13:26 pt accepted at [facility] by dr Villalobos. per joana mccauley. bd 13:54 Patient transferred, IV remains in place. ph Administered Medications: 09:03 Drug: NS 0.9% (30 ml/kg) 30 ml/kg Route: IV; Rate: bolus; Site: right antecubital; ph 10:50 Follow up: Response: No adverse reaction; IV Intake: 3000ml ph 10:50 Follow up: Response: No adverse reaction; IV Status: Completed infusion; IV Intake: ph 3000ml 09:25 Drug: Levophed (4 mg/250 mL D5W 4 mcg/min Route: IV; Rate: calculated rate; Site: right ph femoral; 13:49 Follow up: Response: No adverse reaction; IV Status: Infusion continued upon transfer; ph IV Intake: 500ml 09:30 Drug: Tylenol Suppository 650 mg Route: RI; ph 12:20 Follow up: Response: No adverse reaction; Temperature is decreased ph 10:03 Drug: Rocephin - (cefTRIAXone) 2 grams Route: IVPB; Infused Over: 30 mins; Site: right ph femoral; 10:15 Follow up: Response: No adverse reaction; IV Status: Completed infusion ph 10:08 Drug: Sodium Bicarbonate 1 amp Route: IVP; Site: right femoral; ph 12:22 Follow up: Response: No adverse reaction ph 10:20 Drug: Calcium Chloride 10% 10 ml Route: IVP; Site: right femoral; ph 12:24 Follow up: Response: No adverse reaction ph 10:25 Drug: D50W 25 ml Route: IVP; Site: right femoral; ph 12:23 Follow up: Response: No adverse reaction ph 10:27 Drug: Insulin Regular Human 5 units {Co-Signature: vc (Nuris Urbano RN).} Route: ph IVP; Site: right femoral; 12:23 Follow up: Response: No adverse reaction ph 10:28 Not Given (Other Intervention Used): Calcium Gluconate 1 grams IVPB once over 60 mins; ph (mix in NS 100 mL) 10:28 Not Given (Duplicate Order): Sodium Bicarbonate 1 amp IVP once; (50 mL); equals 50 mEq ph 10:50 Drug: NS 0.9% 1000 ml Route: IV; Rate: 100 ml/hr; Site: right femoral; ph 13:47 Follow up: Response: No adverse reaction; IV Status: Infusion continued upon transfer; ph IV Intake: 300ml 12:14 Drug: Flagyl 500 mg Volume: 100 ml; Route: IVPB; Rate: 200 ml/hr; Infused Over: 30 ph mins; Site: right femoral; 12:45 Follow up: Response: No adverse reaction; IV Status: Completed infusion; IV Intake: ph 100ml 12:24 Drug: Gentamicin 1 mg/kg Route: IVPB; Infused Over: 30 mins; Site: right femoral; ph 12:55 Follow up: Response: No adverse reaction; IV Status: Completed infusion; IV Intake: ph 100ml Intake: 10:50 IV: 3000ml; Total: 3000ml. ph 10:50 IV: 3000ml; Total: 6000ml. ph 12:45 IV: 100ml; Total: 6100ml. ph 12:55 IV: 100ml; Total: 6200ml. ph 13:47 IV: 300ml; Total: 6500ml. ph 13:49 IV: 500ml; Total: 7000ml. ph Outcome: 10:27 Decision to Hospitalize by Provider. kdr 12:02 ER care complete, transfer ordered by . kdr 13:54 Transferred by helicopter to [facility], Transfer form completed. X-rays sent ph w/ patient. Note: on bi-pap 13:54 critical 13:54 Instructed on the need for transfer. 14:00 Patient left the ED. ph Signatures: Dispatcher [employer] EDMS Sherita Frias Kevin, MD MD kdr Williams, Irene, RN RN iw Hall, Patricia, RN RN ph Wise, Tara, RN RN tw2 Delfin Blanca RN RN jl7 Nuris Urbano RN vc Corrections: (The following items were deleted from the chart) 10:29 10:15 Calcium Chloride 10% 10 ml IVP in right femoral ph ph 13:46 13:45 Response: No adverse reaction; IV Status: Completed infusion; IV Intake: 100ml ph ph
--- NOTE | 2019-04-06 10:29 | EDPHYS ---
Physician Documentation [facility] Name: Jorge Crespo Age: 83 yrs Sex: Male : 1935 Arrival Date: 04/06/2019 Time: 08:45 Bed 3 Private MD: ED Physician Donald Zamorano HPI: 04/06 09:23 This 83 yrs old Male presents to ER via EMS with complaints of unresponsive. kdr 09:23 The patient presents with decreased mental status, decreased responsiveness. The kdr patient presents with The patient was seen by me on arrival at the time of transfer to hospital bed from EMS stretcher. Onset: The symptoms/episode began/occurred at an unknown time. Possible causes: CVA or TIA, sepsis. Associated signs and symptoms: Pertinent positives: abdominal pain. Current symptoms: In the emergency department the patient's symptoms are unchanged from the initial presentation, EMS reported that the patient was unresponsive but he does answer questions appropriately when prompted. Patient's baseline: Neuro: alert and fully oriented, Motor: no deficits, Ambulation: walks with assist only. It is unknown whether or not the patient has had similar symptoms in the past. It is unknown whether or not the patient has recently seen a physician, EMS reported that the patient had recently been in a [facility] and then taken home since apparently he was doing well enough. . The patient has been home from [facility] last Sunday and had been doing well since then until yesterday when he slept more and had decreased urine output. His gave him more Lasix but without much apparent improvement. Historical: - Allergies: 08:58 No Known Allergies; tw2 - Home Meds: 08:58 allopurinol 300 mg Oral tab 1 tab once daily [Active]; aspirin 81 mg Oral chew 1 tab tw2 once daily [Active]; atorvastatin 20 mg oral tab 1 tab once daily [Active]; brimonidine 0.2 % ophthalmic drop 1 drop every 8 hours [Active]; dorzolamide-timolol (PF) ophthalmic ophthalmic [Active]; ferrous sulfate 325 mg (65 mg iron) Oral tab [Active]; gabapentin 300 mg Oral cap 1 cap 2 times daily [Active]; Levemir FlexTouch 16 units subcutaneous twice a day [Active]; metoprolol tartrate 75 mg oral tab [Active]; prednisone 5 mg/5 mL Oral soln once daily [Active]; tamsulosin 0.4 mg Oral cp24 1 cap once daily [Active]; tramadol 50 mg Oral tab 1 tab every 6 hours [Active]; - PMHx: 08:58 a-fib; Rheumatoid Arthritis; Diabetes - IDDM; Myocardial infarction; CHF; tw2 - PSHx: 08:58 bilateral knees; kidney; tw2 - Immunization history:: Last tetanus immunization:. - Social history:: Patient uses Smoking status: . - Ebola Screening: : Patient denies travel to an Ebola-affected area in the 21 days before illness onset. ROS: 09:23 Constitutional: Negative for fever, chills, and weight loss, The patient is a kdr generally poor histroian but had no focal c/o. Stated he was doing well and family does not report any new c/o other than yesterday when he was sleeping more and decreased urine output Exam: 09:23 Constitutional: This is a well developed, well nourished obese patient who is kdr somnolent but open his eyes to questions and responds appropriately to questions. He denies any SOB or pain Head/Face: Normocephalic, atraumatic. Eyes: Pupils equal round and reactive to light, extra-ocular motions intact. Lids and lashes normal. Conjunctiva and sclera are non-icteric and not injected. Cornea within normal limits. Periorbital areas with no swelling, redness, or edema. Neck: Trachea midline, no thyromegaly or masses palpated, and no cervical lymphadenopathy. Supple, full range of motion without nuchal rigidity, or vertebral point tenderness. No Meningismus. Chest/axilla: Normal chest wall appearance and motion. Nontender with no deformity. No lesions are appreciated. Cardiovascular: Regular rate and rhythm with a normal S1 and S2. No gallops, murmurs, or rubs. Normal PMI, no JVD. No pulse deficits. Abdomen/GI: Soft, minorly non-tender, with normal bowel sounds. Obese but no apparent distension or tympany. No guarding or rebound. 10:27 ECG was reviewed by the Attending Physician. kdr Vital Signs: 08:55 BP 68 / 33; Pulse 114; Resp 26; Temp 99.2(C); Pulse Ox 100% on Non-rebreather mask; tw2 09:01 Weight 102.06 kg (R); tw2 09:15 BP 68 / 49; Pulse 111; Resp 26 S; Pulse Ox 100% on Non-rebreather mask; iw 09:25 Temp 100.2(C); ph 09:45 BP 77 / 63; Pulse 108; Resp 24 S; Pulse Ox 92% on Non-rebreather mask; iw 10:05 BP 96 / 65; Pulse 111; Resp 24 S; Pulse Ox 100% on Non-rebreather mask; iw 10:15 BP 106 / 78; Pulse 114; Resp 22; Temp 99.1(C); Pulse Ox 85% on 100% Non-rebreather mask;ph 10:33 BP 107 / 71; Pulse 115; Resp 18; Temp 98.9; Pulse Ox 92% on 100% Non-rebreather mask; ph 10:45 BP 124 / 83; Pulse 115; Resp 18; Temp 98.8; Pulse Ox 88% on 60% BiPAP; ph 11:00 BP 125 / 93; Pulse 112; Resp 20; Temp 98.6; Pulse Ox 87% on 60% BiPAP; ph 11:27 BP 98 / 63; Pulse 117; Resp 18; Temp 98.7(C); Pulse Ox 84% on 40% BiPAP; ph 11:45 BP 116 / 70; Pulse 111; Resp 18; Temp 98.8(C); Pulse Ox 83% on 40% BiPAP; ph 12:00 BP 88 / 67; Pulse 115; Resp 20; Temp 98.8(C); Pulse Ox 81% on 40% BiPAP; ph 12:15 BP 90 / 60; Pulse 115; Resp 18; Temp 98.9(C); Pulse Ox 85% on 40% BiPAP; ph 12:31 BP 90 / 68; Pulse 110; Resp 18; Temp 99.0(C); Pulse Ox 86% on 40% BiPAP; ph 12:45 BP 86 / 61; Pulse 116; Resp 20; Temp 99.0(C); Pulse Ox 97% on 40% BiPAP; ph 13:00 BP 87 / 62; Pulse 113; Resp 18; Temp 99.0(C); Pulse Ox 98% on 40% BiPAP; ph 13:15 BP 89 / 71; Pulse 116; Resp 18; Temp 99.0; Pulse Ox 98% on 40% BiPAP; ph 13:30 BP 95 / 68; Pulse 113; Resp 18; Temp 99.0(C); Pulse Ox 98% on 40% BiPAP; ph 11:27 DR Zamorano aware of Spo2, ABGs x 3 done to confirm that O2 level is stable ph 13:00 pulse oximeter moved to finger ph Willa Coma Score: 13:11 Eye Response: to voice(3). Verbal Response: confused(4). Motor Response: localizes ph pain(5). Total: 12. MDM: 10:27 Patient medically screened. kdr 10:27 Data reviewed: vital signs, nurses notes, lab test result(s), EKG, radiologic studies. kdr Counseling: I had a detailed discussion with the patient and/or guardian regarding: the historical points, exam findings, and any diagnostic results supporting the discharge/admit diagnosis, lab results, radiology results, the need for further work-up and treatment in the hospital. 04/06 08:52 Order name: Basic Metabolic Panel 04/06 08:52 Order name: Blood Culture Adult (2) iw 04/06 08:52 Order name: CBC with Diff 04/06 08:52 Order name: Ckmb; Complete Time: 10:01 04/06 08:52 Order name: CPK; Complete Time: 10:01 04/06 08:52 Order name: Lactate; Complete Time: 10:30 iw 04/06 08:52 Order name: LFT's; Complete Time: 10:01 04/06 08:52 Order name: Lipase; Complete Time: 10:01 04/06 08:52 Order name: Procalcitonin; Complete Time: 09:47 iw 04/06 08:52 Order name: Protime (+inr); Complete Time: 09:47 iw 04/06 08:52 Order name: Ptt, Activated; Complete Time: 09:47 04/06 08:52 Order name: Troponin (emerg Dept Use Only); Complete Time: 10:01 iw 04/06 08:52 Order name: Urine Microscopic Only; Complete Time: 09:47 04/06 08:53 Order name: Basic Metabolic Panel; Complete Time: 10:01 EDMS 04/06 08:52 Order name: Chest Single View XRAY; Complete Time: 10:30 iw 04/06 09:03 Order name: Glucose, Ancillary Testing; Complete Time: 09:47 EDMS 04/06 09:06 Order name: Urine Dipstick--Ancillary (enter results); Complete Time: 09:47 bd 04/06 09:57 Order name: Manual Differential; Complete Time: 10:01 EDMS 04/06 10:12 Order name: ABG; Complete Time: 11:35 kdr 04/06 10:14 Order name: ABG Arterial Blood Gas; Complete Time: 10:30 EDMS 04/06 10:34 Order name: CT Chest Abdomen Pelvis W/O Contrast; Complete Time: 11:55 kdr 04/06 10:34 Order name: Flu; Complete Time: 11:35 kdr 04/06 11:38 Order name: ABG Arterial Blood Gas; Complete Time: 11:42 EDMS 04/06 08:52 Order name: Accucheck; Complete Time: 08:58 iw 04/06 08:52 Order name: Cardiac monitoring; Complete Time: 08:58 iw 04/06 08:52 Order name: EKG - Nurse/Tech; Complete Time: 08:58 iw 04/06 08:52 Order name: IV Saline Lock - Large Bore; Complete Time: 08:58 iw 04/06 08:52 Order name: Labs collected and sent; Complete Time: 08:59 iw 04/06 08:52 Order name: O2 Per Protocol; Complete Time: 08:59 iw 04/06 08:52 Order name: O2 Sat Monitoring; Complete Time: 08:59 iw 04/06 08:52 Order name: Urine Dipstick-Ancillary (obtain specimen); Complete Time: 08:59 iw EC:27 Rate is 118 beats/min. Rhythm is irregularly irregular, A fib with No ectopy, kdr Occasional PVCs. QRS [place] is Normal. Clinical impression: Atrial Fibrillation and No evidence of ischemia. Administered Medications: 09:03 Drug: NS 0.9% (30 ml/kg) 30 ml/kg Route: IV; Rate: bolus; Site: right antecubital; ph 10:50 Follow up: Response: No adverse reaction; IV Intake: 3000ml ph 10:50 Follow up: Response: No adverse reaction; IV Status: Completed infusion; IV Intake: ph 3000ml 09:25 Drug: Levophed (4 mg/250 mL D5W 4 mcg/min Route: IV; Rate: calculated rate; Site: right ph femoral; 13:49 Follow up: Response: No adverse reaction; IV Status: Infusion continued upon transfer; ph IV Intake: 500ml 09:30 Drug: Tylenol Suppository 650 mg Route: NC; ph 12:20 Follow up: Response: No adverse reaction; Temperature is decreased ph 10:03 Drug: Rocephin - (cefTRIAXone) 2 grams Route: IVPB; Infused Over: 30 mins; Site: right ph femoral; 10:15 Follow up: Response: No adverse reaction; IV Status: Completed infusion ph 10:08 Drug: Sodium Bicarbonate 1 amp Route: IVP; Site: right femoral; ph 12:22 Follow up: Response: No adverse reaction ph 10:20 Drug: Calcium Chloride 10% 10 ml Route: IVP; Site: right femoral; ph 12:24 Follow up: Response: No adverse reaction ph 10:25 Drug: D50W 25 ml Route: IVP; Site: right femoral; ph 12:23 Follow up: Response: No adverse reaction ph 10:27 Drug: Insulin Regular Human 5 units {Co-Signature: vc (Nuris Urbano RN).} Route: ph IVP; Site: right femoral; 12:23 Follow up: Response: No adverse reaction ph 10:28 Not Given (Other Intervention Used): Calcium Gluconate 1 grams IVPB once over 60 mins; ph (mix in NS 100 mL) 10:28 Not Given (Duplicate Order): Sodium Bicarbonate 1 amp IVP once; (50 mL); equals 50 mEq ph 10:50 Drug: NS 0.9% 1000 ml Route: IV; Rate: 100 ml/hr; Site: right femoral; ph 13:47 Follow up: Response: No adverse reaction; IV Status: Infusion continued upon transfer; ph IV Intake: 300ml 12:14 Drug: Flagyl 500 mg Volume: 100 ml; Route: IVPB; Rate: 200 ml/hr; Infused Over: 30 ph mins; Site: right femoral; 12:45 Follow up: Response: No adverse reaction; IV Status: Completed infusion; IV Intake: ph 100ml 12:24 Drug: Gentamicin 1 mg/kg Route: IVPB; Infused Over: 30 mins; Site: right femoral; ph 12:55 Follow up: Response: No adverse reaction; IV Status: Completed infusion; IV Intake: ph 100ml Disposition: 04/06/19 12:02 Transfer ordered to [facility]. Diagnosis are Taniya gangrene, Sepsis, unspecified organism, Hyperkalemia, Pneumonia, unspecified organism, Acute on chronic renal failure. - Reason for transfer: Higher level of care. - Accepting physician is [facility] ICU. - Condition is Serious. - Problem is new. - Symptoms have improved. Signatures: Dispatcher [employer] EDMN Donald Zamorano MD MD kdr Janet Gimenez RN RN Sanjuana Molina RN RN ph Gloria Justin, RN RN tw2 Nuris Urbano RN vc Corrections: (The following items were deleted from the chart) 10:14 10:13 Arterial Blood Gas+[id number] ordered. [facility] EDMN 11:59 10:27 Hospitalization Ordered by Landon Mccord MD for Inpatient Admission. kdr Preliminary diagnosis is Weakness; Altered mental status, unspecified; Hypotension, unspecified; Hyperkalemia. Bed requested for Intensive Care Unit. Status is Inpatient Admission. Condition is Serious. Problem is new. Symptoms have improved. UTI on Admission? No. kdr 14:00 12:02 04/06/2019 12:02 Transfer ordered to [facility]. Diagnosis is ph Taniya gangrene; Sepsis, unspecified organism; Hyperkalemia; Pneumonia, unspecified organism; Acute on chronic renal failure. Reason for transfer: Higher level of care. Accepting physician is [facility] ICU. Condition is Serious. Problem is new. Symptoms have improved. kdr
[2019-04-06] MEDS ORDERED: NOREPINEPHRINE 4 MG in D5W 250 ML IV PRN (11:16)
[2019-04-06 11:29] LABS: Arterial Blood Carboxyhemoglob 0.4 % (0-1.5); Blood Gas Oxyhemoglobin 98.1 % (94-97); Blood O2 Saturation 99.3 % (92-98.5)
[2019-04-06 11:31] LABS: Arterial Blood Carboxyhemoglob 0.3 % (0-1.5); Blood Gas Oxyhemoglobin 98.1 % (94-97); Blood O2 Saturation 99.3 % (92-98.5)
--- NOTE | 2019-04-06 11:32 | RAD REPORT ---
EXAM DESCRIPTION: CT - Chest Abd Pelvis Wo Con - 04/06/2019 11:17 am CLINICAL HISTORY: Chest and abdomen pain. abdominal pain COMPARISON: No comparisons TECHNIQUE: A limited noncontrast study was performed. All CT scans are performed using dose optimization technique as appropriate and may include automated exposure control or mA/KV adjustment according to patient size. FINDINGS: Opacities are present in both posterior lung bases, greater on the left, likely representi ng infiltrate/pneumonia.The lungs are otherwise underinflated.No pleural or pericardial effusion.Card iomegaly is present, mild.No intrathoracic adenopathy. Noncontrast assessment of the liver, spleen, pancreas, adrenal glands within normal limits. Small joseline culi are present in both kidneys without hydronephrosis. No bowel obstruction, free air, free fluid or abscess. Normal appendix. Small bilateral fat containin g inguinal hernia. No pathologic lymphadenopathy in the abdomen or pelvis. Air is present in the kathie neum with scrotal swelling most compatible with Taniya's gangrene. Moderate lumbosacral degenerative changes. IMPRESSION: Ill-defined opacities in both lung bases posteriorly, greater on the left, most compatib le with infiltrate/pneumonia. Small bilateral renal calculi seen without hydronephrosis. Scrotal swelling with Taniya's gangrene findings noted.
[2019-04-06] MEDS ORDERED: METRONIDAZOLE 500mg IVPB 500 MG/100 ML BAG IV ONE (12:11)
[2019-04-06] MEDS ORDERED: GENTAMICIN 100 MG/100 ML BAG 100 ML IV ONE (12:30)
[2019-04-06 14:57] VITALS: TEMP 99
[2019-04-06 15:01] VITALS: O2SAT 98
[2019-04-06 15:04] VITALS: BP 95/68
--- NOTE | 2019-04-07 20:49 | EKG ---
Test Date: 2019-04-06 Test Time: 08:52:12 Hop Strainer: MARY MEASUREMENT RESULTS: Intervals: Rate: 119 [place]: QRSD: 108 QT: 316 QTc: 444 [place]: P: [place]: QRS: 93 T: 4 INTERPRETIVE STATEMENTS: Atrial fibrillation with rapid ventricular response with premature ventricular or aberrantly conducted complexes Rightward axis Nonspecific T wave abnormality, probably digitalis effect Abnormal ECG Compared to ECG 10/15/2018 15:19:34 Ventricular premature complex(es) now present Right-axis deviation now present T-wave abnormality now present ST (T wave) deviation no longer present Electronically Signed On 04-07-19 20:46:52 SENIOR PORTFOLIO ANALYST by Wiley Colón
== END 2019-04-06 14:00 | disposition short-term general hospital (02) ==
LOC: ER 08:43
DX: N49.3 Fournier gangrene (principal); A41.9 Sepsis, unspecified organism; J18.9 Pneumonia, unspecified organism; N17.9 Acute kidney failure, unspecified; E87.5 Hyperkalemia; E11.9 Type 2 diabetes mellitus without complications; I25.2 Old myocardial infarction; I48.91 Unspecified atrial fibrillation; Z79.82 Long term (current) use of aspirin
CPT/HCPCS: 96365; 96367; 96368; 93005; 87040 ×2; 85025; 80048; 36415; 82550; 87205 ×2; 85610; 82947; 80076; 83605 ×2; 85730; 84484; 82553; 83690; 84145; 87804 ×2; 71250; 74176; 71045; 82805 ×3; 94660; 51702; 99291; 99292; 96366 ×2; J1580; J0696; J7060; J7030 ×3; 81003; 81015